=== PATIENT | female | born 1970 | race American Indian/Alaskan Native ===

== ENCOUNTER 2019-08-22 17:40 | Emergency (ER) | payer MEDICAID ==
--- NOTE | 2019-08-22 18:43 | Emergency Department Report ---
Blank Doc - Documentation Documentation: 49-year-old female that presents with URI symptoms and SOB. This initial assessment/diagnostic orders/clinical plan/treatment(s) is/are subject to change based on patient's health status, clinical progression and re- assessment by fellow clinical providers in the ED. Further treatment and workup at subsequent clinical providers discretion. Patient/guardians urged not to elope from the ED as their condition may be serious if not clinically assessed and managed. Initial orders include: 1- Patient sent to [facility] for further evaluation and treatment 2- CXR
--- NOTE | 2019-08-22 19:48 | XRay Report ---
CHEST 2 VIEWS INDICATION: cough. COMPARISON: None. FINDINGS: Support devices: None. Heart: Within normal limits. Lungs/Pleura: No acute air space or interstitial disease. No significant pleural effusion. IMPRESSION: No acute findings. Signer Name: Alexy Ospina MD Signed: 08/22/2019 7:44 PM Workstation Name: [id number]
[2019-08-22] MEDS ORDERED: methylPREDNISolone Sod Succinate 125 MG/2 ML INJ IM ONE (21:40)
[2019-08-22] MEDS ORDERED: IPRATROPIUM/ALBUTEROL SULFATE 3 ML AMPUL.NEB IH ONE (21:40)
[2019-08-22] MEDS ORDERED: IBUPROFEN 600 MG TAB PO ONE (21:40)
--- NOTE | 2019-08-22 22:50 | Emergency Department Report ---
- General Chief Complaint: Upper Respiratory Infection Stated Complaint: COLD LIKE SX + WHEEZING Time Seen by Provider: 08/22/19 18:42 Source: patient Mode of arrival: Ambulatory Limitations: No Limitations - History of Present Illness Initial Comments: Patient is a 49-year-old female with a history of asthma, hypertension, COPD and TIA who presents to the ED with complaint of acute onset persistent severe nasal and sinus congestion, frontal sinus pressure and headache, sore throat, subjective fever and chills, diffuse body aches and pains, dry cough with wheezing and shortness of breath and pleuritic chest when for the last 3 days. Patient denies dizziness, chest pain, dizziness, abdominal pain, nausea, vomiting, diarrhea, dysuria, change in vision or syncope and palpitations. Patient states that she has been using albuterol inhaler at home with no relief, and that she has also been using [id number] medication with no relief. Patient states that she used to have nebulizer equipment at home that lasted when she relocated to [place] from [place] over 6 months ago. MD Complaint: fever, cough, sore throat, rhinorrhea, nasal congestion, sinus pain -: Sudden, days(s) (3) Severity: severe Severity scale (0 -10): 7 Quality: aching Consistency: constant Improves With: nothing Worsens With: nothing Associated Symptoms: denies other symptoms, fever, chills, myalgias, headache, rhinorrhea, nasal congestion, sore throat, cough. denies: diaphoresis, stiff neck, chest pain, shortness of breath, abdominal pain, nausea, vomiting, diarrhea, dysuria, rash, confusion, right sweats, weight loss, epistaxis Treatments Prior to Arrival: "cold medicine" - Related Data Previous Rx's Medication Instructions Recorded Last Taken Type Aspirin [Aspirin BABY CHEW TAB] 81 mg PO QDAY tab.chew 06/12/15 1 Day Ago Rx ~12/16/17 Pantoprazole [Protonix TAB] 40 mg PO QDAY #30 tablet 06/12/15 1 Day Ago Rx ~12/16/17 Cetirizine HCl [Zyrtec 10mg tab] 10 mg PO DAILY #30 tablet 08/22/19 Unknown Rx Ibuprofen [Motrin] 800 mg PO Q8HR PRN #24 tablet 08/22/19 Unknown Rx Prednisone [predniSONE 10 mg 10 mg PO .TAPER #21 tab.ds.pk 08/22/19 Unknown Rx (6-Day Pack, 21 Tabs)] Promethazine/Phenyleph/Codeine 5 ml PO Q6H PRN #120 ml 08/22/19 Unknown Rx [Promethazine Vc-Codeine Syrup] levoFLOXacin [Levaquin TAB] 500 mg PO QDAY #10 tablet 08/22/19 Unknown Rx Allergies Allergy/AdvReac Type Severity Reaction Status Date / Time Penicillins Allergy Severe Shortness Verified 09/24/14 11:13 of Breath calcium carbonate Allergy Hives Verified 09/24/14 11:13 [From Pepcid Complete] famotidine Allergy Hives Verified 09/24/14 11:13 [From Pepcid Complete] magnesium Allergy Hives Verified 09/24/14 11:13 [From Pepcid Complete] procaine HCl [From Novocain] Allergy Unknown Verified 09/24/14 11:13 ED Review of Systems ROS: Stated complaint: COLD LIKE SX + WHEEZING Other details as noted in HPI Constitutional: chills, fever, malaise Eyes: denies: eye pain, eye discharge, vision change ENT: throat pain, congestion. denies: ear pain Respiratory: cough, shortness of breath, wheezing Cardiovascular: denies: chest pain, palpitations Endocrine: no symptoms reported Gastrointestinal: denies: abdominal pain, nausea, diarrhea Genitourinary: denies: urgency, dysuria, discharge Musculoskeletal: denies: back pain, joint swelling, arthralgia Skin: denies: rash, lesions Neurological: headache. 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 heart cath x 3. tonsillectomy. c- section - Social History Smoking Status: Never Smoker Substance Use Type: None - Medications Home Medications: Home Medications Medication Instructions Recorded Confirmed Last Taken Type Aspirin [Aspirin BABY CHEW TAB] 81 mg PO QDAY tab.chew 06/12/15 12/17/17 1 Day Ago Rx ~12/16/17 Pantoprazole [Protonix TAB] 40 mg PO QDAY #30 tablet 06/12/15 12/17/17 1 Day Ago Rx ~12/16/17 Cetirizine HCl [Zyrtec 10mg tab] 10 mg PO DAILY #30 tablet 08/22/19 Unknown Rx Ibuprofen [Motrin] 800 mg PO Q8HR PRN #24 tablet 08/22/19 Unknown Rx Prednisone [predniSONE 10 mg 10 mg PO .TAPER #21 tab.ds.pk 08/22/19 Unknown Rx (6-Day Pack, 21 Tabs)] Promethazine/Phenyleph/Codeine 5 ml PO Q6H PRN #120 ml 08/22/19 Unknown Rx [Promethazine Vc-Codeine Syrup] levoFLOXacin [Levaquin TAB] 500 mg PO QDAY #10 tablet 08/22/19 Unknown Rx ED Physical Exam - General Limitations: No Limitations General appearance: alert, in no apparent distress - Head Head exam: Present: atraumatic, normocephalic, normal inspection - Eye Eye exam: Present: normal appearance, PERRL, EOMI Pupils: Present: normal accommodation - ENT ENT exam: Present: normal orophraynx, mucous membranes moist, other (grossly congested nasal passages with palpable frontal sinus tenderness) - Neck Neck exam: Present: normal inspection, full ROM. Absent: tenderness, lymphadenopathy - Respiratory Respiratory exam: Present: wheezes (mildly diffuse coarse wheezes throughout), chest wall tenderness. Absent: respiratory distress, rales, rhonchi, accessory muscle use, decreased breath sounds - Cardiovascular Cardiovascular Exam: Present: normal rhythm, tachycardia, normal heart sounds. Absent: systolic murmur, diastolic murmur, rubs, gallop - GI/Abdominal GI/Abdominal exam: Present: soft, normal bowel sounds. Absent: tenderness, hyperactive bowel sounds, hypoactive bowel sounds, organomegaly - Extremities Exam Extremities exam: Present: normal inspection, full ROM, normal capillary refill - Back Exam Back exam: Present: normal inspection, full ROM. Absent: muscle spasm, paraspinal tenderness - Neurological Exam Neurological exam: Present: alert, oriented X3, CN II-XII intact, normal gait, reflexes normal - Psychiatric Psychiatric exam: Present: normal affect, normal mood - Skin Skin exam: Present: warm, dry, intact, normal color. Absent: rash ED Course Vital Signs 08/22/19 18:42 Temperature 99.1 F Pulse Rate 108 H Respiratory 18 Rate Blood Pressure 146/95 O2 Sat by Pulse 100 Oximetry ED Medical Decision Making - Radiology Data Radiology results: report reviewed, image reviewed Chest x-ray shows no acute cardiopulmonary abnormalities or pneumonitis. - Medical Decision Making This is a 49-year-old female with a history of asthma and COPD who presented to the ED with nasal and sinus congestion, frontal sinus pressure, shortness of breath, dry cough and wheezing for the last 3 days. In the ED, patient is alert and oriented 3 in destruction and distress. Patient is however tachycardic in triage. Patient was treated in the ED with DuoNeb, Solu-Medrol and also tearful pain. On reevaluation, patient's wheezing resolved and patient felt better. Tachycardia also resolved when the vital signs were rechecked. Patient was discharged home on medications and was advised to follow-up with her primary care physician in 5-7 days for reevaluation or return to the ED immediately if symptoms get worse. - Differential Diagnosis asthma; bronchitis, pneumonia, sinusitis; URI; Flu Critical care attestation.: If time is entered above; I have spent that time in minutes in the direct care of this critically ill patient, excluding procedure time. ED Disposition Clinical Impression: Acute upper respiratory infection, Acute asthmatic bronchitis Acute frontal sinusitis, unspecified Qualifiers: Recurrence: non-recurrent Qualified Code(s): J01.10 - Acute frontal sinusitis, unspecified Acute pharyngitis Qualifiers: Pharyngitis/tonsillitis etiology: other specified organisms Qualified Code(s): J02.8 - Acute pharyngitis due to other specified organisms Disposition: DC-01 TO HOME OR SELFCARE Is pt being admited?: No Does the pt Need Aspirin: No Condition: Stable Instructions: Acute Bronchitis (ED), Upper Respiratory Infection (ED), Reactive Airways Disease (ED), Acute Bacterial Rhinosinusitis (ED) Additional Instructions: Take medication with food, drink plenty of fluids and follow-up with your primary care physician in 5-7 days for reevaluation. Return to the ED imme diately if symptoms get worse. Prescriptions: levoFLOXacin [Levaquin TAB] 500 mg PO QDAY #10 tablet Ibuprofen [Motrin] 800 mg PO Q8HR PRN #24 tablet PRN Reason: Pain , Severe (7-10) Prednisone [predniSONE 10 mg (6-Day Pack, 21 Tabs)] 10 mg PO .TAPER #21 tab.ds.pk Promethazine/Phenyleph/Codeine [Promethazine Vc-Codeine Syrup] 5 ml PO Q6H PRN #120 ml PRN Reason: Cough Cetirizine HCl [Zyrtec 10mg tab] 10 mg PO DAILY #30 tablet Referrals: TUNG GRAJEDA MD [Staff Physician] - 7-10 days Forms: Work/School Release Form(ED) Time of Disposition: 22:57 Print Language: UKRAINIAN
[2019-08-22 22:54] VITALS: BP 104/70
== END 2019-08-22 23:13 | disposition home or self-care (01) ==
LOC: ED 17:40
DX: J01.10 Acute frontal sinusitis, unspecified (principal); J02.8 Acute pharyngitis due to other specified organisms; J06.9 Acute upper respiratory infection, unspecified; J45.998 Other asthma; K21.9 Gastro-esophageal reflux disease without esophagitis; G43.909 Migraine, unspecified, not intractable, without status migrainosus; F20.9 Schizophrenia, unspecified; F31.9 Bipolar disorder, unspecified; I25.2 Old myocardial infarction; Z86.73 Personal history of transient ischemic attack (TIA), and cerebral infarction without residual deficits; Z90.710 Acquired absence of both cervix and uterus; Z98.890 Other specified postprocedural states; Z95.5 Presence of coronary angioplasty implant and graft; Z90.49 Acquired absence of other specified parts of digestive tract; Z79.899 Other long term (current) drug therapy; Z88.0 Allergy status to penicillin; Z88.8 Allergy status to other drugs, medicaments and biological substances
CPT/HCPCS: 71046; 96372; 99283; J2930

== ENCOUNTER 2020-02-16 00:43 | Emergency (ER) | payer MEDICAID ==
[2020-02-16] MEDS ORDERED: HALOPERIDOL LACTATE 5 MG/1 ML INJ IM PRN (01:30)
[2020-02-16] MEDS ORDERED: LORazepam 2 MG/ML VIAL IM PRN (01:30)
--- NOTE | 2020-02-16 01:31 | Event Note ---
Date: 02/16/20 49-year-old female with known history of schizoaffective disorder, reportedly presenting with suicidality, and distress. Patient walking with a steady gait. Check basic laboratory studies, place patient on ER hold, psychiatric consultation, reassess.
[2020-02-16 01:42] LABS: Basophils % (Auto) 0.5 % (0.0-1.8); Eosinophils % (Auto) 0.6 % (0.0-4.3); Hematocrit 39.1 % (30.3-42.9); Lymphocytes # (Auto) 2.8 K/mm3 (1.2-5.4); Lymphocytes % (Auto) 37.2 % (13.4-35.0); Mean Corpuscular HGB Conc 33 % (30-34); Mean Corpuscular Volume 86 fl (79-97); Monocytes # (Auto) 0.5 K/mm3 (0.0-0.8); Monocytes % (Auto) 7.2 % (0.0-7.3); Platelet Count 286 K/mm3 (140-440); Red Blood Count 4.56 M/mm3 (3.65-5.03)
[2020-02-16 01:48] LABS: Bacteria,Urine 1+ /HPF (Negative); Mucus,Urine 3+ /HPF
[2020-02-16 01:49] LABS: Bilirubin,Urine NEG (Negative); Blood,Urine MOD (Negative); Color,Urine Yellow (Yellow)
[2020-02-16 02:06] LABS: BUN/Creatinine Ratio 14; Blood Urea Nitrogen 13 mg/dL (7-17); Calcium 10.1 mg/dL (8.4-10.2); Hemolysis Index 9
[2020-02-16 02:30] LABS: Amphetamine Screen,Urine PRESUMPTIVE NEGATIVE; Benzodiazepines Screen,Urine PRESUMPTIVE NEGATIVE; Cannabinoid Screen,Urine PRESUMPTIVE NEGATIVE; Cocaine Screen,Urine PRESUMPTIVE NEGATIVE; Methadone Screen,Urine PRESUMPTIVE NEGATIVE; Opiate Screen,Urine PRESUMPTIVE NEGATIVE
[2020-02-16] MEDS ORDERED: IBUPROFEN 800 MG TAB PO PRN (03:05)
[2020-02-16] MEDS ORDERED: ALPRAZolam 1 MG TAB PO ONE (03:14)
--- NOTE | 2020-02-16 03:15 | Emergency Department Report ---
<MARAH MC - Last Filed: 02/16/20 04:49> ED General Adult HPI - General Chief complaint: Psych Stated complaint: SUICIDAL IDEATION PUI?: No Time Seen by Provider: 02/16/20 03:04 Source: patient, EMS ( EMS documentation not available at time of chart dictation ), RN notes reviewed, old records reviewed Mode of arrival: Ambulatory Limitations: No Limitations - History of Present Illness Initial comments: This is a 49-year-old female, distant history of hysterectomy, history of bipolar, schizophrenia, question cervical radiculopathy, negative cardiac catheterization in the past, presenting to the ER with audio hallucinations, and suicidality. The patient is very distressed about the current social and political climate in this country. She denies physical pain at this time. She states that she does not want to hurt herself, but she is worried that the voices will push her over the edge. She indicates she does not have access to guns or firearms, and she has not tried to overdose on anything. Her symptoms are improved with verbal de-escalation techniques, calming techniques and Xanax. At the moment, she appears to be pleasant and cooperative, and is asking for warm blanket -: Gradual Consistency: constant Improves with: other Worsens with: other Associated Symptoms: denies other symptoms - Related Data Previous Rx's Medication Instructions Recorded Last Taken Type Aspirin [Aspirin BABY CHEW TAB] 81 mg PO QDAY tab.chew 06/12/15 1 Day Ago Rx ~12/16/17 Pantoprazole [Protonix TAB] 40 mg PO QDAY #30 tablet 06/12/15 1 Day Ago Rx ~12/16/17 Cetirizine HCl [Zyrtec 10mg tab] 10 mg PO DAILY #30 tablet 08/22/19 Unknown Rx Ibuprofen [Motrin] 800 mg PO Q8HR PRN #24 tablet 08/22/19 Unknown Rx Prednisone [predniSONE 10 mg 10 mg PO .TAPER #21 tab.ds.pk 08/22/19 Unknown Rx (6-Day Pack, 21 Tabs)] Promethazine/Phenyleph/Codeine 5 ml PO Q6H PRN #120 ml 08/22/19 Unknown Rx [Promethazine Vc-Codeine Syrup] levoFLOXacin [Levaquin TAB] 500 mg PO QDAY #10 tablet 08/22/19 Unknown Rx Allergies Allergy/AdvReac Type Severity Reaction Status Date / Time Penicillins Allergy Severe Shortness Verified 02/16/20 01:07 of Breath calcium carbonate Allergy Hives Verified 02/16/20 01:07 [From Pepcid Complete] famotidine Allergy Hives Verified 02/16/20 01:07 [From Pepcid Complete] magnesium Allergy Hives Verified 02/16/20 01:07 [From Pepcid Complete] procaine HCl [From Novocain] Allergy Unknown Verified 02/16/20 01:07 ED Review of Systems Comment: All other systems reviewed and negative Psychiatric: anxiety, depression, auditory hallucinations, suicidal thoughts. 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 heart cath x 3. tonsillectomy. c- section - Social History Smoking Status: Never Smoker Substance Use Type: None - Medications Home Medications: Home Medications Medication Instructions Recorded Confirmed Last Taken Type Aspirin [Aspirin BABY CHEW TAB] 81 mg PO QDAY tab.chew 06/12/15 12/17/17 1 Day Ago Rx ~12/16/17 Pantoprazole [Protonix TAB] 40 mg PO QDAY #30 tablet 06/12/15 12/17/17 1 Day Ago Rx ~12/16/17 Cetirizine HCl [Zyrtec 10mg tab] 10 mg PO DAILY #30 tablet 08/22/19 Unknown Rx Ibuprofen [Motrin] 800 mg PO Q8HR PRN #24 tablet 08/22/19 Unknown Rx Prednisone [predniSONE 10 mg 10 mg PO .TAPER #21 tab.ds.pk 08/22/19 Unknown Rx (6-Day Pack, 21 Tabs)] Promethazine/Phenyleph/Codeine 5 ml PO Q6H PRN #120 ml 08/22/19 Unknown Rx [Promethazine Vc-Codeine Syrup] levoFLOXacin [Levaquin TAB] 500 mg PO QDAY #10 tablet 08/22/19 Unknown Rx ED Physical Exam - General Limitations: No Limitations General appearance: alert, anxious, in distress, obese - Head Head exam: Present: atraumatic, normocephalic - Eye Eye exam: Present: normal appearance, EOMI. Absent: nystagmus - ENT ENT exam: Present: normal exam, normal orophraynx, mucous membranes moist, normal external ear exam - Neck Neck exam: Present: normal inspection, full ROM. Absent: tenderness, menin gismus - Respiratory Respiratory exam: Present: normal lung sounds bilaterally. Absent: respiratory distress - Cardiovascular Cardiovascular Exam: Present: regular rate, normal rhythm, normal heart sounds. Absent: bradycardia, tachycardia, irregular rhythm, systolic murmur, diastolic murmur, rubs, gallop - GI/Abdominal GI/Abdominal exam: Present: soft, normal bowel sounds. Absent: distended, tenderness, guarding, rebound, pulsatile mass - Extremities Exam Extremities exam: Present: normal inspection, full ROM, other (2+ pulses noted in the bilateral upper and lower extremities. There is no palpable cord. negative Homans sign. Muscular compartments are soft. The pelvis is stable.). Absent: pedal edema, calf tenderness - Back Exam Back exam: Present: normal inspection, full ROM. Absent: tenderness, CVA tenderness (R), CVA tenderness (L), paraspinal tenderness, vertebral tenderness - Neurological Exam Neurological exam: Present: alert, oriented X3, normal gait, other (No facial droop. Tongue midline. Extraocular movements intact bilaterally. Facial sensation intact to light touch in V1, V2, V3 distribution bilaterally. 5 and a 5 strength in 4 extremities. Sensation intact to light touch in 4 extremities.). Absent: motor sensory deficit - Psychiatric Psychiatric exam: Present: anxious. Absent: homicidal ideation, suicidal ideation - Skin Skin exam: Present: warm, dry, intact, normal color. Absent: rash ED Medical Decision Making - Lab Data Result diagrams: 02/16/20 01:27 02/16/20 01:27 Vital Signs 02/16/20 01:07 Temperature 98.8 F Pulse Rate 93 H Respiratory 18 Rate Blood Pressure 155/98 O2 Sat by Pulse 98 Oximetry Lab Results 02/16/20 02/16/20 02/16/20 Range/Units 01:27 01:27 01:27 WBC (4.5-11.0) K/mm3 RBC (3.65-5.03) M/mm3 Hgb (10.1-14.3) gm/dl Hct (30.3-42.9) % MCV (79-97) fl MCH (28-32) pg MCHC (30-34) % RDW (13.2-15.2) % Plt Count (140-440) K/mm3 Lymph % (Auto) (13.4-35.0) % [place] % (Auto) (0.0-7.3) % Eos % (Auto) (0.0-4.3) % Baso % (Auto) (0.0-1.8) % Lymph # (1.2-5.4) K/mm3 [place] # (0.0-0.8) K/mm3 Eos # (0.0-0.4) K/mm3 Baso # (0.0-0.1) K/mm3 Seg Neutrophils % (40.0-70.0) % Seg Neutrophils # (1.8-7.7) K/mm3 Sodium 143 (137-145) mmol/L Potassium 3.6 (3.6-5.0) mmol/L Chloride 103.9 (98-107) mmol/L Carbon Dioxide 23 (22-30) mmol/L Anion Gap 20 mmol/L BUN 13 (7-17) mg/dL Creatinine 0.9 (0.7-1.2) mg/dL Estimated GFR > 60 ml/min BUN/Creatinine Ratio 14 % Glucose 120 H (65-100) mg/dL Calcium 10.1 (8.4-10.2) mg/dL Magnesium (1.7-2.3) mg/dL Total Creatine Kinase (30-135) units/L Urine Color (Yellow) Urine Turbidity (Clear) Urine pH (5.0-7.0) Ur Specific [place] (1.003-1.030) Urine Protein (Negative) mg/dL Urine Glucose (UA) (Negative) mg/dL Urine Ketones (Negative) mg/dL Urine Blood (Negative) Urine Nitrite (Negative) Ur Reducing Substances Urine Bilirubin (Negative) Urine Ictotest Urine Urobilinogen (<2.0) mg/dL Ur Leukocyte Esterase (Negative) Urine WBC (Auto) (0.0-6.0) /HPF Urine RBC (Auto) (0.0-6.0) /HPF U Epithel Cells (Auto) (0-13.0) /HPF Urine Bacteria (Auto) (Negative) /HPF Urine Mucus /HPF Salicylates (2.8-20.0) mg/dL Urine Opiates Screen Urine Methadone Screen Acetaminophen < 5.0 L (10.0-30.0) ug/mL Ur Barbiturates Screen Valproic Acid (50-100) ug/mL Ur Phencyclidine Scrn Ur Amphetamines Screen U Benzodiazepines Scrn Urine Cocaine Screen U Marijuana (THC) Screen Drugs of Abuse Note Plasma/Serum Alcohol < 0.01 (0-0.07) % 02/16/20 02/16/20 02/16/20 Range/Units 01:27 01:30 01:33 WBC 7.5 (4.5-11.0) K/mm3 RBC 4.56 (3.65-5.03) M/mm3 Hgb 13.0 (10.1-14.3) gm/dl Hct 39.1 (30.3-42.9) % MCV 86 (79-97) fl MCH 28 (28-32) pg MCHC 33 (30-34) % RDW 14.0 (13.2-15.2) % Plt Count 286 (140-440) K/mm3 Lymph % (Auto) 37.2 H (13.4-35.0) % [place] % (Auto) 7.2 (0.0-7.3) % Eos % (Auto) 0.6 (0.0-4.3) % Baso % (Auto) 0.5 (0.0-1.8) % Lymph # 2.8 (1.2-5.4) K/mm3 [place] # 0.5 (0.0-0.8) K/mm3 Eos # 0.0 (0.0-0.4) K/mm3 Baso # 0.0 (0.0-0.1) K/mm3 Seg Neutrophils % 54.5 (40.0-70.0) % Seg Neutrophils # 4.1 (1.8-7.7) K/mm3 Sodium (137-145) mmol/L Potassium (3.6-5.0) mmol/L Chloride (98-107) mmol/L Carbon Dioxide (22-30) mmol/L Anion Gap mmol/L BUN (7-17) mg/dL Creatinine (0.7-1.2) mg/dL Estimated GFR ml/min BUN/Creatinine Ratio % Glucose (65-100) mg/dL Calcium (8.4-10.2) mg/dL Magnesium 2.10 (1.7-2.3) mg/dL Total Creatine Kinase 63 (30-135) units/L Urine Color (Yellow) Urine Turbidity (Clear) Urine pH (5.0-7.0) Ur Specific [place] (1.003-1.030) Urine Protein (Negative) mg/dL Urine Glucose (UA) (Negative) mg/dL Urine Ketones (Negative) mg/dL Urine Blood (Negative) Urine Nitrite (Negative) Ur Reducing Substances Urine Bilirubin (Negative) Urine Ictotest Urine Urobilinogen (<2.0) mg/dL Ur Leukocyte Esterase (Negative) Urine WBC (Auto) (0.0-6.0) /HPF Urine RBC (Auto) (0.0-6.0) /HPF U Epithel Cells (Auto) (0-13.0) /HPF Urine Bacteria (Auto) (Negative) /HPF Urine Mucus /HPF Salicylates < 0.3 L (2.8-20.0) mg/dL Urine Opiates Screen Urine Methadone Screen Acetaminophen (10.0-30.0) ug/mL Ur Barbiturates Screen Valproic Acid < 2.8 L (50-100) ug/mL Ur Phencyclidine Scrn Ur Amphetamines Screen U Benzodiazepines Scrn Urine Cocaine Screen U Marijuana (THC) Screen Drugs of Abuse Note Plasma/Serum Alcohol (0-0.07) % 02/16/20 02/16/20 Range/Units 01:39 01:39 WBC (4.5-11.0) K/mm3 RBC (3.65-5.03) M/mm3 Hgb (10.1-14.3) gm/dl Hct (30.3-42.9) % MCV (79-97) fl MCH (28-32) pg MCHC (30-34) % RDW (13.2-15.2) % Plt Count (140-440) K/mm3 Lymph % (Auto) (13.4-35.0) % [place] % (Auto) (0.0-7.3) % Eos % (Auto) (0.0-4.3) % Baso % (Auto) (0.0-1.8) % Lymph # (1.2-5.4) K/mm3 [place] # (0.0-0.8) K/mm3 Eos # (0.0-0.4) K/mm3 Baso # (0.0-0.1) K/mm3 Seg Neutrophils % (40.0-70.0) % Seg Neutrophils # (1.8-7.7) K/mm3 Sodium (137-145) mmol/L Potassium (3.6-5.0) mmol/L Chloride (98-107) mmol/L Carbon Dioxide (22-30) mmol/L Anion Gap mmol/L BUN (7-17) mg/dL Creatinine (0.7-1.2) mg/dL Estimated GFR ml/min BUN/Creatinine Ratio % Glucose (65-100) mg/dL Calcium (8.4-10.2) mg/dL Magnesium (1.7-2.3) mg/dL Total Creatine Kinase (30-135) units/L Urine Color Yellow (Yellow) Urine Turbidity Cloudy (Clear) Urine pH 5.0 (5.0-7.0) Ur Specific [place] 1.030 (1.003-1.030) Urine Protein 30 mg/dl (Negative) mg/dL Urine Glucose (UA) Neg (Negative) mg/dL Urine Ketones Neg (Negative) mg/dL Urine Blood Mod (Negative) Urine Nitrite Neg (Negative) Ur Reducing Substances Not Reportable Urine Bilirubin Neg (Negative) Urine Ictotest Not Reportable Urine Urobilinogen 2.0 (<2.0) mg/dL Ur Leukocyte Esterase Sm (Negative) Urine WBC (Auto) 8.0 H (0.0-6.0) /HPF Urine RBC (Auto) 15.0 (0.0-6.0) /HPF U Epithel Cells (Auto) 17.0 H (0-13.0) /HPF Urine Bacteria (Auto) 1+ (Negative) /HPF Urine Mucus 3+ /HPF Salicylates (2.8-20.0) mg/dL Urine Opiates Screen Presumptive negative Urine Methadone Screen Presumptive negative Acetaminophen (10.0-30.0) ug/mL Ur Barbiturates Screen Presumptive negative Valproic Acid (50-100) ug/mL Ur Phencyclidine Scrn Presumptive negative Ur Amphetamines Screen Presumptive negative U Benzodiazepines Scrn Presumptive negative Urine Cocaine Screen Presumptive negative U Marijuana (THC) Screen Presumptive negative Drugs of Abuse Note Disclamer Plasma/Serum Alcohol (0-0.07) % - Medical Decision Making Differential diagnosis, including but not limited to: Anxiety, psychosis, medical clearance for psychiatric placement Assessment and plan: 49-year-old female with known psychiatric history, presenting with hallucinations, suicidality, anxiety over current social political events. She is afebrile with reassuring vital signs. She was initially quite distressed, but now appears to be more calm. Her screening laboratory studies are unremarkable. At this point time, she presents as calm and cooperative. The patient is placed on hold, and a psychiatric consultation is requested. At the moment, the patient does not appear to have an immediate medical contraindication to psychiatric admission, evaluation, consultation and placement ED Disposition Clinical Impression: Suicidal ideations, Medical clearance for psychiatric admission Disposition: -01 TO HOME OR SELFCARE Is pt being admited?: No Does the pt Need Aspirin: No Condition: Good Instructions: Suicide Prevention for Adults (ED), Depression (ED), Medical Clearance for Psychiatric Care (ED) Additional Instructions: Please follow-up with a primary care physician as soon as you are able to do so. Please follow-up with the [facility] or any of the other outpatient referrals that you were given by the psychiatric team. Return to the emergency department with any worsening of your symptoms, thoughts of harming your self or others, or with any acute distress. Referrals: PRIMARY CAREMD [Primary Care Provider] - 3-5 Days [facility] [Outside] - 3-5 Days <LISA LONGO S - Last Filed: 02/16/20 18:13> ED Review of Systems ROS: Stated complaint: SUICIDAL IDEATION Other details as noted in HPI ED Course Vital Signs 02/16/20 02/16/20 02/16/20 01:07 04:00 07:31 Temperature 98.8 F 97.7 F Pulse Rate 93 H 78 Respiratory 18 18 20 Rate Blood Pressure 155/98 Blood Pressure 139/87 [Left] O2 Sat by Pulse 98 97 Oximetry 02/16/20 10:30 Temperature 97.6 F Pulse Rate 78 Respiratory 17 Rate Blood Pressure Blood Pressure 134/82 [Left] O2 Sat by Pulse 97 Oximetry ED Medical Decision Making - Lab Data Result diagrams: 02/16/20 01:27 02/16/20 01:27 - Medical Decision Making Patient has been accepted for admission to the [facility] psych unit. Her vital signs and labs have been reviewed and there does not appear to be any immediate medical concerns or emergency for which she is not able to be discharged to the [facility] psych unit. Critical Care Time: No Critical care attestation.: If time is entered above; I have spent that time in minutes in the direct care of this critically ill patient, excluding procedure time. ED Disposition Is pt being admited?: No
[2020-02-16] MEDS ORDERED: PANTOPRAZOLE 40 MG TAB PO SCH (10:00)
[2020-02-16] MEDS ORDERED: ASPIRIN 81 MG TAB CHEW PO SCH (10:00)
[2020-02-16] MEDS ORDERED: CETIRIZINE 10 MG TAB PO SCH (10:00)
[2020-02-16 15:45] VITALS: BP 134/82
== END 2020-02-16 18:18 | disposition home or self-care (01) ==
LOC: ED 00:43 → EEVIPCON 00:43 → ED 18:18
DX: R45.851 Suicidal ideations (principal); I25.2 Old myocardial infarction; F20.9 Schizophrenia, unspecified; G43.909 Migraine, unspecified, not intractable, without status migrainosus; J44.9 Chronic obstructive pulmonary disease, unspecified; K21.9 Gastro-esophageal reflux disease without esophagitis; Z88.0 Allergy status to penicillin; Z88.8 Allergy status to other drugs, medicaments and biological substances; Z90.710 Acquired absence of both cervix and uterus; Z86.73 Personal history of transient ischemic attack (TIA), and cerebral infarction without residual deficits; Z90.49 Acquired absence of other specified parts of digestive tract; Z98.890 Other specified postprocedural states; Z79.899 Other long term (current) drug therapy; Z00.8 Encounter for other general examination
CPT/HCPCS: 36415; 80048; 80164; 80307; 80320; 81001; 82550; 83735; 85025; G0480

== ENCOUNTER 2020-02-16 12:11 | Inpatient (IN) | payer MEDICAID ==
[2020-02-16] MEDS ORDERED: ACETAMINOPHEN 325 MG TAB PO PRN (12:33)
[2020-02-16] MEDS ORDERED: HALOPERIDOL LACTATE 5 MG/1 ML INJ IM PRN (12:33)
[2020-02-16] MEDS ORDERED: LORazepam 2 MG/ML VIAL IM PRN (12:33)
[2020-02-16] MEDS ORDERED: MELATONIN 5 MG TAB PO PRN (12:33)
[2020-02-16] MEDS: traZODone 50 MG TAB PO SCH (21:22)
[2020-02-16] MEDS: VALPROIC ACID 250 MG CAP PO SCH (21:22)
[2020-02-16] MEDS: QUEtiapine 25 MG TAB PO SCH (21:23)
[2020-02-17 06:26] LABS: Chol/HDL Ratio 2.07 %
[2020-02-17] MEDS: VALPROIC ACID 250 MG CAP PO SCH ×3 (09:23→21:25)
[2020-02-17] MEDS: QUEtiapine 25 MG TAB PO SCH ×2 (09:23→09:24)
[2020-02-17] MEDS: NICOTINE 7 MG/24 HR PATCH TD SCH (09:27)
--- NOTE | 2020-02-17 09:49 | History and Physical Report ---
GP History & Physical - History of Present Illness Date of admission: 02/16/20 Date of Examination: 02/17/20 Reason for Admission: Danger to self, Severe anxiety/depression Chief Complaint: depression, hallucinations, suicidal History of Present Illness: Billy Alberto is a 49y/o female patient who states she was brought to the hospital because, "I didn't know what was going on with me. I didn't feel right." The patient is a/o x 3. She makes good eye contact. She is calm and cooperative. The patient verbalizes being "depressed." She says "I have voices fighting in my head." She then says, "I don't get much sleep because the voices keep messing with me." The patient states, "everything makes me sad." She then says, "like listening to this song right now, it makes me feeling like I want to ." She denies SI/HI, but states, "I just want to . Not hurt myself, but I feel like I'm dying." There is music playing in the background. Mrs. Alberto says she had this same thing happen to her "about a month ago." She says she "didn't know what was going on with me just like now." The patient says she's "attempted suicide about 16 times." She says, "mostly from taking pills, but once from drinking bleach." She says she's been admitted for psychiatric problems, "over 1000 times." She denies any illicit drug use, alcohol or nicotine use. She also denies any outpatient treatments. She says, she "normally go to the hospital." The patient says she has past psych diagnoses of "bipolar, depression and schizophrenia." She could not remember medications she had tried. PAST PSYCHIATRIC HISTORY: Diagnoses: bipolar, depression, schizophrenia Suicide attempts or Self-harm behavior: "16" Prior psychiatric hospitalizations: "over 1000 times" Substance Abuse history: Denies Previous psychiatric medications tried: Could not recall Outpatient treatment: Denies PAST MEDICAL HISTORY: None reported Family Psychiatric History: None reported or documented SOCIAL HISTORY Marital Status: Living Arrangements: roommate Employment Status: Disabled Access to guns/weapons: Denies Education: 10th grade History of abuse: Denies Legal History: Denies ROS Constitutional: Negative for weight loss EMT: Negative for stridor Respiratory: Negative for cough or hemoptysis All other systems reviewed and are negative MENTAL STATUS EXAMINATION General Appearance: Dressed appropriately. Behavior: Calm and cooperative Mood: "Depressed" Affect: Congruent with stated mood Speech: Normal tone and pace Thought Process: Goal directed Suicidal Ideation: Yes, passive Homicidal Ideation: Denies Hallucinations: Auditory Delusions: None elicited Insight and Judgment: Limited Memory/Cognition: Limited Assessment and Plan Schizoaffective Disorder Treatment Plan Patient will be admitted for inpatient psychiatric evaluation, medication adjustment and close monitoring The patient's behavior, mood, sleep and appetite will be closely monitored. Patient will be enrolled in individual and group therapeutic sessions and encouraged to attend. Patient will be provided with a safe and structured environment. Patient's physical health needs will be addressed by the Hospitalist. Hospitalist Consulted Labs including CBC, CMP, Lipid profile and Hemoglobin A1C ordered Social Assessment will be completed and the Child Life Therapist will work with patient and family to ensure a suitable and safe disposition Medication adjustment will be made as clinically indicated Usual Wellness Alevism/Preservation: Increased Seroquel 100mg po BID Prozac 10mg po daily This is an acknowledgement statement that Billy Alberto is a 49y/o female patient who requires inpatient psychiatric admission for treatment which could reasonably be expected to improve the patient's condition for Schizoaffective Disorder, which includes the symptoms of depression, suicidal thoughts, and psychosis. Estimated period of time patient will need to remain in the hospital: [7] Plan for post-hospital care: [Outpatient ] Legal Status: Voluntary Reaction to Hospitalization: Accepting Medications and Allergies Allergies Allergy/AdvReac Type Severity Reaction Status Date / Time Penicillins Allergy Severe Shortness Verified 02/16/20 01:07 of Breath calcium carbonate Allergy Hives Verified 02/16/20 01:07 [From Pepcid Complete] famotidine Allergy Hives Verified 02/16/20 01:07 [From Pepcid Complete] magnesium Allergy Hives Verified 02/16/20 01:07 [From Pepcid Complete] procaine HCl [From Novocain] Allergy Unknown Verified 02/16/20 01:07 Home Medications Medication Instructions Recorded Confirmed Last Taken Type Aspirin [Aspirin BABY CHEW TAB] 81 mg PO QDAY tab.chew 06/12/15 12/17/17 1 Day Ago Rx ~12/16/17 Pantoprazole [Protonix TAB] 40 mg PO QDAY #30 tablet 06/12/15 12/17/17 1 Day Ago Rx ~12/16/17 Cetirizine HCl [Zyrtec 10mg tab] 10 mg PO DAILY #30 tablet 08/22/19 Unknown Rx Ibuprofen [Motrin] 800 mg PO Q8HR PRN #24 tablet 08/22/19 Unknown Rx Prednisone [predniSONE 10 mg 10 mg PO .TAPER #21 tab.ds.pk 08/22/19 Unknown Rx (6-Day Pack, 21 Tabs)] Promethazine/Phenyleph/Codeine 5 ml PO Q6H PRN #120 ml 08/22/19 Unknown Rx [Promethazine Vc-Codeine Syrup] levoFLOXacin [Levaquin TAB] 500 mg PO QDAY #10 tablet 08/22/19 Unknown Rx Active Meds: Active Medications Acetaminophen (Tylenol) 650 mg PO Q4H PRN PRN Reason: Pain, Mild (1-3) Haloperidol Lactate (Haldol) 5 mg IM ONCE PRN PRN Reason: Agitation Lorazepam (Ativan) 2 mg IM Q4HR PRN PRN Reason: Agitation Melatonin (Melatonin) 5 mg PO QHS PRN PRN Reason: Sleep Nicotine (Habitrol) 7 mg TD QDAY [facility] Last Admin: 02/17/20 09:27 Dose: Not Given Documented by: Quetiapine Fumarate (Seroquel) 50 mg PO BID [facility] Last Admin: 02/17/20 09:24 Dose: Not Given Documented by: Trazodone HCl (Desyrel) 50 mg PO QHS [facility] Last Admin: 02/16/20 21:22 Dose: 50 mg Documented by: Valproic Acid (Depakene) 500 mg PO BID [facility] Last Admin: 02/17/20 09:24 Dose: 500 mg Documented by: Results - Results Labs/Vitals: Laboratory Last Values POC Glucose 100 (70-105) 02/16/20 19:47 Hemoglobin A1c 5.3 % (4-6) 02/17/20 05:55 Triglycerides 81 mg/dL (2-149) 02/17/20 05:55 Cholesterol 135 mg/dL (50-199) 02/17/20 05:55 LDL Cholesterol Direct 64 mg/dL (50-130) 02/17/20 05:55 HDL Cholesterol 65 mg/dL (40-59) H 02/17/20 05:55 Cholesterol/HDL Ratio 2.07 % 02/17/20 05:55 TSH 1.790 mlU/mL (0.270-4.200) 02/17/20 05:55 Last Vital Signs Temp 98.4 F 02/17/20 07:54 Pulse 78 02/17/20 07:54 Resp 17 02/17/20 07:54 BP 149/89 02/17/20 07:54 Pulse Ox 98 02/17/20 07:54 Physical Examination - Constitutional Vitals: Vital Signs Temp Pulse Resp BP Pulse Ox 98.4 F 78 17 149/89 98 02/17/20 07:54 02/17/20 07:54 02/17/20 07:54 02/17/20 07:54 02/17/20 07:54 Temperature -Last 24 Hours Temperature 98.4 F Temperature 98.0 F Mental Status Exam - Vital signs Last Vital Signs Temp 98.4 F 02/17/20 07:54 Pulse 78 02/17/20 07:54 Resp 02/17/20 07:54 BP 149/89 02/17/20 07:54 Pulse Ox 98 02/17/20 07:54 Physician Certification - Certification Statement Physician Certification Statement: This is an acknowledgement statement that BILLY ALBERTO is a 49 year old F who requires inpatient psychiatric admission for treatment which could reasonably be expected to improve the patient's condition for Estimated period of time patient will need to remain in the hospital: [ ] Plan for post-hospital care: [ ]
[2020-02-17] MEDS: FLUoxetine 10 MG TAB PO SCH (10:41)
[2020-02-17] MEDS: QUEtiapine 100 MG TAB PO SCH ×2 (10:41→21:31)
[2020-02-17] MEDS: traZODone 50 MG TAB PO SCH (21:24)
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
[2020-02-18] MEDS: FLUoxetine 10 MG TAB PO SCH (11:23)
[2020-02-18] MEDS: risperiDONE 0.25 MG TAB PO SCH ×3 (11:24→21:55)
[2020-02-18] MEDS: NICOTINE 7 MG/24 HR PATCH TD SCH (11:26)
[2020-02-18] MEDS: VALPROIC ACID 250 MG CAP PO SCH ×3 (14:09→21:50)
[2020-02-18] MEDS: traZODone 50 MG TAB PO SCH ×2 (21:49→21:55)
--- NOTE | 2020-02-19 07:59 | Progress Note ---
Subjective Date of service: 02/19/20 Principal diagnosis: Schizoaffective Disorder Subjective Comment: The patient's medical record was reviewed and the patient's progress discussed with the nursing staff. The nurse note states the patient is alert and oriented x4, easily irritable, refused bedtime medication During my interview with the patient, she is found in the dayroom with her head down on the table. She arouses easily. The patient is irritable. She is paranoid. She is uncooperative. She describes her mood as "alright." When asking the patient how did her night go, she states, "yall keep aggrevating me. Yall taking me for a joke and I'm tired of it." When asking the patient to elaborate on why she felt this way, she replies, "I's not funny at all." She then says, "bye. Bye. I'm done." The patient then puts her head back down and refuses to continue the interview. Reason for continued inpatient treatment: The patient is paranoid, and irritable. ROS The patient did not answer MENTAL STATUS EXAMINATION General Appearance: Dressed appropriately. Behavior: Withdrawn, Irritable. Uncooperative. Mood: "alright" Affect: Congruent with stated mood, Restricted Speech: Normal tone and pace Thought Process: Goal directed Suicidal Ideation: Could not obtain Homicidal Ideation: Could not obtain Hallucinations: Could not obtain Delusions: Paranoid Insight and Judgment: Limited Memory/Cognition: Limited Assessment and Plan Schizoaffective Disorder Treatment Plan Patient will be admitted for inpatient psychiatric evaluation, medication adjustment and close monitoring The patient's behavior, mood, sleep and appetite will be closely monitored. Patient will be enrolled in individual and group therapeutic sessions and encouraged to attend. Patient will be provided with a safe and structured environment. Patient's physical health needs will be addressed by the Hospitalist. Hospitalist Consulted Labs including CBC, CMP, Lipid profile and Hemoglobin A1C ordered Valproic Acid level 02/22/20 Social Assessment will be completed and the Plug Machine Operator will work with patient and family to ensure a suitable and safe disposition Medication adjustment will be made as clinically indicated Usual Wellness Jainism/Preservation: Increased Risperidone 1mg po BID This is an acknowledgement statement that April Alberto is a 49y/o female patient who requires inpatient psychiatric admission for treatment which could reasonably be expected to improve the patient's condition for Schizoaffective Disorder, which includes the symptoms of depression, suicidal thoughts, and psychosis. Estimated period of time patient will need to remain in the hospital: [5] Plan for post-hospital care: [Outpatient ] Medications and Allergies Allergies Allergy/AdvReac Type Severity Reaction Status Date / Time Penicillins Allergy Severe Shortness Verified 02/16/20 01:07 of Breath calcium carbonate Allergy Hives Verified 02/16/20 01:07 [From Pepcid Complete] famotidine Allergy Hives Verified 02/16/20 01:07 [From Pepcid Complete] magnesium Allergy Hives Verified 02/16/20 01:07 [From Pepcid Complete] procaine HCl [From Novocain] Allergy Unknown Verified 02/16/20 01:07 Home Medications Medication Instructions Recorded Confirmed Last Taken Type Aspirin [Aspirin BABY CHEW TAB] 81 mg PO QDAY tab.chew 06/12/15 02/17/20 1 Day Ago Rx ~12/16/17 Pantoprazole [Protonix TAB] 40 mg PO QDAY #30 tablet 06/12/15 02/17/20 1 Day Ago Rx ~12/16/17 Cetirizine HCl [Zyrtec 10mg tab] 10 mg PO DAILY #30 tablet 08/22/19 02/17/20 Unknown Rx Ibuprofen [Motrin] 800 mg PO Q8HR PRN #24 tablet 08/22/19 02/17/20 Unknown Rx Prednisone [predniSONE 10 mg 10 mg PO .TAPER #21 tab.ds.pk 08/22/19 02/17/20 Unknown Rx (6-Day Pack, 21 Tabs)] Promethazine/Phenyleph/Codeine 5 ml PO Q6H PRN #120 ml 08/22/19 02/17/20 Unknown Rx [Promethazine Vc-Codeine Syrup] levoFLOXacin [Levaquin TAB] 500 mg PO QDAY #10 tablet 08/22/19 02/17/20 Unknown Rx Active Meds: Active Medications Acetaminophen (Tylenol) 650 mg PO Q4H PRN PRN Reason: Pain, Mild (1-3) Fluoxetine HCl (Prozac) 10 mg PO QDAY [facility] Last Admin: 02/18/20 11:23 Dose: 10 mg Documented by: Haloperidol Lactate (Haldol) 5 mg IM ONCE PRN PRN Reason: Agitation Lorazepam (Ativan) 2 mg IM Q4HR PRN PRN Reason: Agitation Melatonin (Melatonin) 5 mg PO QHS PRN PRN Reason: Sleep Nicotine (Habitrol) 7 mg TD QDAY [facility] Last Admin: 02/18/20 11:26 Dose: Not Given Documented by: Risperidone (Risperdal) 0.5 mg PO BID [facility] Last Admin: 02/18/20 21:55 Dose: Not Given Documented by: Trazodone HCl (Desyrel) 50 mg PO QHS [facility] Last Admin: 02/18/20 21:55 Dose: Not Given Documented by: Valproic Acid (Depakene) 500 mg PO TID [facility] Last Admin: 02/18/20 20:54 Dose: Not Given Documented by: Results - Results Labs/Vitals: Laboratory Last Values POC Glucose 100 (70-105) 02/16/20 19:47 Hemoglobin A1c 5.3 % (4-6) 02/17/20 05:55 Triglycerides 81 mg/dL (2-149) 02/17/20 05:55 Cholesterol 135 mg/dL (50-199) 02/17/20 05:55 LDL Cholesterol Direct 64 mg/dL (50-130) 02/17/20 05:55 HDL Cholesterol 65 mg/dL (40-59) H 02/17/20 05:55 Cholesterol/HDL Ratio 2.07 % 02/17/20 05:55 TSH 1.790 mlU/mL (0.270-4.200) 02/17/20 05:55 Last Vital Signs Temp 98.8 F 02/18/20 19:51 Pulse 78 02/18/20 19:51 Resp 18 02/18/20 19:51 BP 129/74 02/18/20 19:51 Pulse Ox 100 02/18/20 19:51
[2020-02-19] MEDS ORDERED: risperiDONE 1 MG TAB PO SCH (10:00)
[2020-02-19] MEDS: FLUoxetine 10 MG TAB PO SCH (10:07)
[2020-02-19] MEDS: NICOTINE 7 MG/24 HR PATCH TD SCH (10:08)
[2020-02-19] MEDS: VALPROIC ACID 250 MG CAP PO SCH ×3 (10:10→21:25)
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
[2020-02-19] MEDS: ARIPiprazole 5 MG TAB PO SCH (15:38)
[2020-02-19] MEDS: VENLAFAXINE 25 MG TAB PO SCH (15:38)
[2020-02-19] MEDS: traZODone 50 MG TAB PO SCH (21:25)
[2020-02-20 09:16] VITALS: BP 124/74
[2020-02-20] MEDS: VENLAFAXINE 25 MG TAB PO SCH (09:30)
[2020-02-20] MEDS: ARIPiprazole 5 MG TAB PO SCH (09:31)
[2020-02-20] MEDS: VALPROIC ACID 250 MG CAP PO SCH (09:31)
--- NOTE | 2020-02-20 10:02 | Discharge Summary ---
Providers - Providers Date of Admission: 02/16/20 18:47 Date of discharge: 02/20/20 Attending physician: SAUL PHILLIPS MD 02/16/20 12:31 Consult to Physician [CONS] Routine Comment: Consulting Provider: BIBIANA WATSON Physician Instructions: Reason For Exam: medical management Primary care physician: MEDICAL INSURANCE BILLER Hospitalization Reason for admission: hallucinations, depression Admitting Diagnosis: F25.1 - SCHIZOAFFECTIVE DISORDER, DEPRESSIVE TYPE Condition: Stable Hospital course: The patient was provided inpatient psychiatric treatment with safe and supportive care, medication adjustment, adverse effect monitoring, medical evaluations, medical treatments, assessment and psycho-education. The patient's mood, cognition, behavior, moral support are improved and stabilized. St the time of discharge, the patient had no endangering behavior and no debilitating adverse effects. The patient agreed on potential consequences of no treatment and gave informed consent. Disposition: - TO HOME OR SELFCARE Time spent for discharge: 37 Allergies/Adverse Reactions: Allergies Penicillins Allergy (Severe, Verified 02/16/20 01:07) Shortness of Breath calcium carbonate [From Pepcid Complete] Allergy (Verified 02/16/20 01:07) Hives famotidine [From Pepcid Complete] Allergy (Verified 02/16/20 01:07) Hives magnesium [From Pepcid Complete] Allergy (Verified 02/16/20 01:07) Hives procaine HCl [From Novocain] Allergy (Verified 02/16/20 01:07) Unknown Vital Signs: Last Vital Signs Temp 98.5 F 02/20/20 08:47 Pulse 83 02/20/20 08:47 Resp 18 02/20/20 08:47 BP 124/74 02/20/20 08:47 Pulse Ox 98 02/20/20 08:47 Last Lab: Laboratory Last Values POC Glucose 100 (70-105) 02/16/20 19:47 Hemoglobin A1c 5.3 % (4-6) 02/17/20 05:55 Triglycerides 81 mg/dL (2-149) 02/17/20 05:55 Cholesterol 135 mg/dL (50-199) 02/17/20 05:55 LDL Cholesterol Direct 64 mg/dL (50-130) 02/17/20 05:55 HDL Cholesterol 65 mg/dL (40-59) H 06/05/20 05:55 Cholesterol/HDL Ratio 2.07 % 02/17/20 05:55 TSH 1.790 mlU/mL (0.270-4.200) 02/17/20 05:55 Core Measure Documentation - Palliative Care Palliative Care/ Comfort Measures: Not Applicable - Core Measures Any of the following diagnoses?: none Exam - Constitutional Vitals: Temp Pulse Resp BP Pulse Ox 98.5 F 83 18 124/74 98 02/20/20 08:47 02/20/20 08:47 02/20/20 08:47 02/20/20 08:47 02/20/20 08:47 General appearance: Present: no acute distress, well-nourished - EENT Eyes: Present: PERRL, EOM intact ENT: hearing intact, clear oral mucosa - Neck Neck: Present: supple, normal ROM - Respiratory Respiratory effort: normal Plan Activity: advance as tolerated Weight Bearing Status: Weight Bear as Tolerated Follow up with: PRIMARY CARE, [Primary Care Provider] - 7 Days
[2020-02-20] MEDS: NICOTINE 7 MG/24 HR PATCH TD SCH (10:30)
== END 2020-02-20 13:35 | disposition home or self-care (01) | DRG 885 ==
LOC: 3A 12:11 → UNDOADMIN 12:11 → 5A 18:47
PROVIDERS: ADMIT Psychiatry & Neurology Psychiatry; ATTEND Psychiatry & Neurology Psychiatry
DX: F25.1 Schizoaffective disorder, depressive type (principal); F41.9 Anxiety disorder, unspecified; Z88.0 Allergy status to penicillin; Z88.8 Allergy status to other drugs, medicaments and biological substances
CPT/HCPCS: 36415; 80048; 80061; 80164; 80307; 80320; 81001; 82550; 82962; 83036; 83735; 84443; 85025; G0378; G0480

== ENCOUNTER 2020-07-03 06:53 | Emergency (ER) | payer MEDICAID ==
[2020-07-03 07:41] VITALS: BP 172/89
[2020-07-03 08:12] LABS: Bacteria,Urine 1+ /HPF (Negative); Bilirubin,Urine NEG (Negative); Blood,Urine MOD (Negative); Color,Urine Straw (Yellow); Mucus,Urine FEW /HPF; Protein,Urine <15 mg/dL mg/dL (Negative); Urobilinogen,Urine < 2.0 mg/dL (<2.0)
[2020-07-03 08:21] LABS: Hematocrit 38.6 % (30.3-42.9); Hemoglobin 12.7 gm/dl (10.1-14.3); Mean Corpuscular HGB Conc 33 % (30-34); Mean Corpuscular Volume 86 fl (79-97); Platelet Count 206 K/mm3 (140-440); Red Cell Distribution Width 14.2 % (13.2-15.2)
--- NOTE | 2020-07-03 10:37 | Emergency Department Report ---
ED General Adult HPI - General Chief complaint: Vaginal Bleeding Stated complaint: VAGINAL BLEEDING Time Seen by Provider: 07/03/20 10:18 Source: patient Mode of arrival: Ambulatory Limitations: No Limitations - History of Present Illness Initial comments: Patient presents to the emergency department complaining of vaginal bleeding. Patient states that she had a complete hysterectomy years ago. She states that we placed an MARIO into her arm that causes her to grow masses in her pelvis. She also states that the application is causing her multiple orgasms that she wants it removed. Patient also begins to discuss that President Santana and present Tip christian gave her shots to try to control her thinking. I discussed with the patient if she was having any homicidal suicidal thoughts that she declined. She denies any auditory or visual hallucinations but does appear to have some paranoia. When asked about a psych history patient states that's not why she is here. -: unknown Improves with: none Worsens with: none Associated Symptoms: denies other symptoms Treatments Prior to Arrival: none - Related Data Previous Rx's Medication Instructions Recorded Last Taken Type Aspirin [Aspirin BABY CHEW TAB] 81 mg PO QDAY tab.chew 06/12/15 1 Day Ago Rx ~12/16/17 Pantoprazole [Protonix TAB] 40 mg PO QDAY #30 tablet 06/12/15 1 Day Ago Rx ~12/16/17 Cetirizine HCl [Zyrtec 10mg tab] 10 mg PO DAILY #30 tablet 08/22/19 Unknown Rx Ibuprofen [Motrin 800 MG tab] 800 mg PO Q8HR PRN #24 tablet 08/22/19 Unknown Rx Prednisone [predniSONE 10 mg 10 mg PO .TAPER #21 tab.ds.pk 08/22/19 Unknown Rx (6-Day Pack, 21 Tabs)] Promethazine/Phenyleph/Codeine 5 ml PO Q6H PRN #120 ml 08/22/19 Unknown Rx [Promethazine Vc-Codeine Syrup] ARIPiprazole 5 mg PO QDAY #30 tablet 02/20/20 Unknown Rx Nicotine [Habitrol] 7 mg TD QDAY #30 patch 02/20/20 Unknown Rx Valproic Acid [Depakene] 500 mg PO TID #90 capsule 02/20/20 Unknown Rx Venlafaxine [Effexor 25mg tab] 25 mg PO QDAY #30 tablet 02/20/20 Unknown Rx traZODone [Desyrel] 50 mg PO QHS #30 tablet 02/20/20 Unknown Rx Sulfamethoxazole/Trimethoprim 1 each PO BID #14 tablet 07/03/20 Unknown Rx [Bactrim DS TAB] Allergies Allergy/AdvReac Type Severity Reaction Status Date / Time Penicillins Allergy Severe Shortness Verified 02/16/20 01:07 of Breath calcium carbonate Allergy Hives Verified 02/16/20 01:07 [From Pepcid Complete] famotidine Allergy Hives Verified 02/16/20 01:07 [From Pepcid Complete] magnesium Allergy Hives Verified 02/16/20 01:07 [From Pepcid Complete] procaine HCl [From Novocain] Allergy Unknown Verified 02/16/20 01:07 ED Review of Systems ROS: Stated complaint: VAGINAL BLEEDING Other details as noted in HPI Comment: All other systems reviewed and negative Constitutional: denies: chills, fever Eyes: denies: eye pain, eye discharge, vision change ENT: denies: ear pain, throat pain Respiratory: denies: cough, shortness of breath, wheezing Cardiovascular: denies: chest pain, palpitations Endocrine: no symptoms reported Gastrointestinal: denies: abdominal pain, nausea, diarrhea Genitourinary: denies: urgency, dysuria, discharge Musculoskeletal: denies: back pain, joint swelling, arthralgia Skin: denies: rash, lesions Neurological: denies: headache, weakness, paresthesias Psychiatric: denies: anxiety, depression Hematological/Lymphatic: denies: easy bleeding, easy bruising ED Past Medical Hx - Past Medical History Hx CVA: Yes (TIA x2 01/2013, ?2014) Hx Heart Attack/AMI: Yes (2014) Hx Congestive Heart Failure: No Hx Diabetes: No Hx GERD: Yes Hx Renal Disease: No Hx Arthritis: No Hx Headaches / Migraines: Yes (MIGRAINES) Hx Seizures: No Hx Psychiatric Treatment: Yes (schizophrenia, bipolar, anxiety) Hx Asthma: Yes Hx COPD: Yes (chronic bronchitis) Hx Dementia: No Additional medical history: MVP, fibromyalgia Left leg - Surgical History Hx Coronary Stent: Yes Hx Cholecystectomy: No Hx Appendectomy: No Additional Surgical History: hysterectomy. heart cath x 3. tonsillectomy. c- section - Social History Smoking Status: Never Smoker - Medications Home Medications: Home Medications Medication Instructions Recorded Confirmed Last Taken Type Aspirin [Aspirin BABY CHEW TAB] 81 mg PO QDAY tab.chew 06/12/15 02/17/20 1 Day Ago Rx ~12/16/17 Pantoprazole [Protonix TAB] 40 mg PO QDAY #30 tablet 06/12/15 02/17/20 1 Day Ago Rx ~12/16/17 Cetirizine HCl [Zyrtec 10mg tab] 10 mg PO DAILY #30 tablet 08/22/19 02/17/20 Unknown Rx Ibuprofen [Motrin 800 MG tab] 800 mg PO Q8HR PRN #24 tablet 08/22/19 02/17/20 Unknown Rx Prednisone [predniSONE 10 mg 10 mg PO .TAPER #21 tab.ds.pk 08/22/19 02/17/20 Unknown Rx (6-Day Pack, 21 Tabs)] Promethazine/Phenyleph/Codeine 5 ml PO Q6H PRN #120 ml 08/22/19 02/17/20 Unknown Rx [Promethazine Vc-Codeine Syrup] ARIPiprazole 5 mg PO QDAY #30 tablet 02/20/20 Unknown Rx Nicotine [Habitrol] 7 mg TD QDAY #30 patch 02/20/20 Unknown Rx Valproic Acid [Depakene] 500 mg PO TID #90 capsule 02/20/20 Unknown Rx Venlafaxine [Effexor 25mg tab] 25 mg PO QDAY #30 tablet 02/20/20 Unknown Rx traZODone [Desyrel] 50 mg PO QHS #30 tablet 02/20/20 Unknown Rx Sulfamethoxazole/Trimethoprim 1 each PO BID #14 tablet 07/03/20 Unknown Rx [Bactrim DS TAB] ED Physical Exam - General Limitations: No Limitations General appearance: alert, in no apparent distress - Head Head exam: Present: atraumatic, normocephalic - Eye Eye exam: Present: normal appearance, PERRL, EOMI - ENT ENT exam: Present: mucous membranes moist - Neck Neck exam: Present: normal inspection - Respiratory Respiratory exam: Present: normal lung sounds bilaterally. Absent: respiratory distress - Cardiovascular Cardiovascular Exam: Present: regular rate, normal rhythm. Absent: systolic murmur, diastolic murmur, rubs, gallop - GI/Abdominal GI/Abdominal exam: Present: soft, normal bowel sounds. Absent: distended, tenderness - Rectal Rectal exam: Present: deferred - External exam: Present: other (refused) Speculum exam: Present: other (refused) Bi-manual exam: Present: other (refused) - Extremities Exam Extremities exam: Present: normal inspection - Back Exam Back exam: Present: normal inspection - Neurological Exam Neurological exam: Present: alert, oriented X3, CN II-XII intact. Absent: motor sensory deficit - Psychiatric Psychiatric exam: Present: normal affect, normal mood - Skin Skin exam: Present: warm, dry, intact, normal color. Absent: rash ED Course Vital Signs 07/03/20 07:37 Temperature 97.9 F Pulse Rate 81 Respiratory 18 Rate Blood Pressure 172/89 O2 Sat by Pulse 98 Oximetry ED Medical Decision Making - Lab Data Result diagrams: 07/03/20 08:04 Lab Results 07/03/20 07/03/20 Range/Units 08:04 Unknown WBC 4.9 (4.5-11.0) K/mm3 RBC 4.50 (3.65-5.03) M/mm3 Hgb 12.7 (10.1-14.3) gm/dl Hct 38.6 (30.3-42.9) % MCV 86 (79-97) fl MCH 28 (28-32) pg MCHC 33 (30-34) % RDW 14.2 (13.2-15.2) % Plt Count 206 (140-440) K/mm3 Urine Color Straw (Yellow) Urine Turbidity Clear (Clear) Urine pH 5.0 (5.0-7.0) Ur Specific [place] 1.012 (1.003-1.030) Urine Protein <15 mg/dl (Negative) mg/dL Urine Glucose (UA) Neg (Negative) mg/dL Urine Ketones Neg (Negative) mg/dL Urine Blood Mod (Negative) Urine Nitrite Neg (Negative) Urine Bilirubin Neg (Negative) Urine Urobilinogen < 2.0 (<2.0) mg/dL Ur Leukocyte Esterase Neg (Negative) Urine WBC (Auto) 7.0 H (0.0-6.0) /HPF Urine RBC (Auto) 1.0 (0.0-6.0) /HPF U Epithel Cells (Auto) < 1.0 (0-13.0) /HPF Urine Bacteria (Auto) 1+ (Negative) /HPF Urine Mucus Few /HPF - Medical Decision Making Discussed transvaginal ultrasound with the patient and she informed me that you guys do not do this here so you have to see me somewhere else. Critical care attestation.: If time is entered above; I have spent that time in minutes in the direct care of this critically ill patient, excluding procedure time. ED Disposition Clinical Impression: ASB (asymptomatic bacteriuria), Vaginal bleeding Disposition: OP ADMIT IP TO THIS HOSP Is pt being admited?: No Does the pt Need Aspirin: No Condition: Stable Instructions: Urinary Tract Infection in Women (ED) Additional Instructions: return if worse Referrals: PRIMARY CARE, [Primary Care Provider] - 3-[address] [facility] [place] [Outside] - 3-5 Days Time of Disposition: 10:37
== END 2020-07-03 10:50 | disposition admitted as inpatient to this hospital (09) ==
LOC: ED 06:53
DX: N93.9 Abnormal uterine and vaginal bleeding, unspecified (principal); R82.71 Bacteriuria; I25.2 Old myocardial infarction; K21.9 Gastro-esophageal reflux disease without esophagitis; G43.909 Migraine, unspecified, not intractable, without status migrainosus; F41.9 Anxiety disorder, unspecified; F25.0 Schizoaffective disorder, bipolar type; J44.9 Chronic obstructive pulmonary disease, unspecified; Z90.49 Acquired absence of other specified parts of digestive tract; Z88.0 Allergy status to penicillin; Z88.8 Allergy status to other drugs, medicaments and biological substances; Z79.899 Other long term (current) drug therapy; Z90.710 Acquired absence of both cervix and uterus; Z86.73 Personal history of transient ischemic attack (TIA), and cerebral infarction without residual deficits; Z95.5 Presence of coronary angioplasty implant and graft; Z98.890 Other specified postprocedural states
CPT/HCPCS: 36415; 81001; 85027

== ENCOUNTER 2020-07-20 08:38 | Emergency (ER) | payer MEDICAID ==
[2020-07-20 08:54] VITALS: BP 143/71
[2020-07-20 09:30] LABS: Bacteria,Urine 1+ /HPF (Negative); Bilirubin,Urine NEG (Negative); Blood,Urine NEG (Negative); Color,Urine Yellow (Yellow); Mucus,Urine 1+ /HPF
--- NOTE | 2020-07-20 09:35 | Emergency Department Report ---
ED Female HPI - General Chief complaint: Urogenital-Female Stated complaint: UTI Time Seen by Provider: 07/20/20 09:07 Source: patient Mode of arrival: Ambulatory Limitations: No Limitations - Related Data Previous Rx's Medication Instructions Recorded Last Taken Type Aspirin [Aspirin BABY CHEW TAB] 81 mg PO QDAY tab.chew 06/12/15 1 Day Ago Rx ~12/16/17 Pantoprazole [Protonix TAB] 40 mg PO QDAY #30 tablet 06/12/15 1 Day Ago Rx ~12/16/17 Cetirizine HCl [Zyrtec 10mg tab] 10 mg PO DAILY #30 tablet 08/22/19 Unknown Rx Ibuprofen [Motrin 800 MG tab] 800 mg PO Q8HR PRN #24 tablet 08/22/19 Unknown Rx Prednisone [predniSONE 10 mg 10 mg PO .TAPER #21 tab.ds.pk 08/22/19 Unknown Rx (6-Day Pack, 21 Tabs)] Promethazine/Phenyleph/Codeine 5 ml PO Q6H PRN #120 ml 08/22/19 Unknown Rx [Promethazine Vc-Codeine Syrup] ARIPiprazole 5 mg PO QDAY #30 tablet 02/20/20 Unknown Rx Nicotine [Habitrol] 7 mg TD QDAY #30 patch 02/20/20 Unknown Rx Valproic Acid [Depakene] 500 mg PO TID #90 capsule 02/20/20 Unknown Rx Venlafaxine [Effexor 25mg tab] 25 mg PO QDAY #30 tablet 02/20/20 Unknown Rx traZODone [Desyrel] 50 mg PO QHS #30 tablet 02/20/20 Unknown Rx Fluconazole (Nf) [Diflucan TAB] 150 mg PO ONCE 1 Days #1 tablet 07/03/20 Unknown Rx Sulfamethoxazole/Trimethoprim 1 each PO BID #14 tablet 07/03/20 Unknown Rx [Bactrim DS TAB] Allergies Allergy/AdvReac Type Severity Reaction Status Date / Time Penicillins Allergy Severe Shortness Verified 02/16/20 01:07 of Breath calcium carbonate Allergy Hives Verified 02/16/20 01:07 [From Pepcid Complete] famotidine Allergy Hives Verified 02/16/20 01:07 [From Pepcid Complete] magnesium Allergy Hives Verified 02/16/20 01:07 [From Pepcid Complete] procaine HCl [From Novocain] Allergy Unknown Verified 02/16/20 01:07 ED Review of Systems ROS: Stated complaint: UTI Other details as noted in HPI ED Past Medical Hx - Past Medical History Previous Medical History?: Yes Hx CVA: Yes (TIA x2 01/2013, ?2014) Hx Heart Attack/AMI: Yes (2014) Hx Congestive Heart Failure: No Hx Diabetes: No Hx GERD: Yes Hx Renal Disease: No Hx Arthritis: No Hx Headaches / Migraines: Yes (MIGRAINES) Hx Seizures: No Hx Psychiatric Treatment: Yes (schizophrenia, bipolar, anxiety) Hx Asthma: Yes Hx COPD: Yes (chronic bronchitis) Hx Dementia: No Additional medical history: MVP, fibromyalgia Left leg - Surgical History Past Surgical History?: Yes Hx Coronary Stent: Yes Hx Cholecystectomy: No Hx Appendectomy: No Additional Surgical History: hysterectomy. heart cath x 3. tonsillectomy. c- section - Social History Smoking Status: Never Smoker Substance Use Type: Alcohol - Medications Home Medications: Home Medications Medication Instructions Recorded Confirmed Last Taken Type Aspirin [Aspirin BABY CHEW TAB] 81 mg PO QDAY tab.chew 06/12/15 02/17/20 1 Day Ago Rx ~12/16/17 Pantoprazole [Protonix TAB] 40 mg PO QDAY #30 tablet 06/12/15 02/17/20 1 Day Ago Rx ~12/16/17 Cetirizine HCl [Zyrtec 10mg tab] 10 mg PO DAILY #30 tablet 08/22/19 02/17/20 Unknown Rx Ibuprofen [Motrin 800 MG tab] 800 mg PO Q8HR PRN #24 tablet 08/22/19 02/17/20 Unknown Rx Prednisone [predniSONE 10 mg 10 mg PO .TAPER #21 tab.ds.pk 08/22/19 02/17/20 Unknown Rx (6-Day Pack, 21 Tabs)] Promethazine/Phenyleph/Codeine 5 ml PO Q6H PRN #120 ml 08/22/19 02/17/20 Unknown Rx [Promethazine Vc-Codeine Syrup] ARIPiprazole 5 mg PO QDAY #30 tablet 02/20/20 Unknown Rx Nicotine [Habitrol] 7 mg TD QDAY #30 patch 02/20/20 Unknown Rx Valproic Acid [Depakene] 500 mg PO TID #90 capsule 02/20/20 Unknown Rx Venlafaxine [Effexor 25mg tab] 25 mg PO QDAY #30 tablet 02/20/20 Unknown Rx traZODone [Desyrel] 50 mg PO QHS #30 tablet 02/20/20 Unknown Rx Fluconazole (Nf) [Diflucan TAB] 150 mg PO ONCE 1 Days #1 tablet 07/03/20 Unknown Rx Sulfamethoxazole/Trimethoprim 1 each PO BID #14 tablet 07/03/20 Unknown Rx [Bactrim DS TAB] ED Physical Exam - General Limitations: No Limitations ED Course Vital Signs 07/20/20 08:46 Temperature 98.4 F Pulse Rate 88 Respiratory 16 Rate Blood Pressure 143/71 O2 Sat by Pulse 98 Oximetry Critical care attestation.: If time is entered above; I have spent that time in minutes in the direct care of this critically ill patient, excluding procedure time. ED Disposition Condition: Stable Referrals: PRIMARY CARE, [Primary Care Provider] - 3-5 Days
--- NOTE | 2020-07-20 09:37 | Emergency Department Report ---
Chief Complaint: Urogenital-Female Stated Complaint: UTI Time Seen by Provider: 07/20/20 09:07 - HPI History of Present Illness: The patient was evaluated in the emergency department for symptoms described in the history of present illness. He/she was evaluated in the context of the global COVID-19 pandemic, which necessitated consideration that the patient might be at risk for infection with the virus that causes COVID-19. Institutional protocols and algorithms that pertain to the evaluation of patients at risk for COVID-19 are in a state of rapid change based on information released by regulatory bodies including the CDC and federal and state organizations. These policies and algorithms were followed during the patient's care in the emergency department. Please note that these policies, procedures and recommendations changed on a rapid basis. 50-year-old obese -Citizen Of [place] female comes in stating she has a nodule to - Exam Vital Signs: Vital Signs 07/20/20 08:46 Temperature 98.4 F Pulse Rate 88 Respiratory 16 Rate Blood Pressure 143/71 O2 Sat by Pulse 98 Oximetry MSE screening note: Focused history and physical exam performed. Due to findings the following was ordered: ED Disposition for MSE Condition: Stable Referrals: PRIMARY CARE, [Primary Care Provider] - 3-5 Days
--- NOTE | 2020-07-20 10:04 | Emergency Department Report ---
ED Female HPI - General Chief complaint: Urogenital-Female Stated complaint: UTI Time Seen by Provider: 07/20/20 09:07 Source: patient Mode of arrival: Ambulatory Limitations: No Limitations - History of Present Illness Initial comments: 50-year-old -[place] female presents to the emergency room for follow-up on her bladder infection. Patient denies any pain but states she has an odor to her vaginal area. Patient states she has completed her antibiotics that she started on on 07/03/2020. Patient denies any fever chills no nausea no vomiting or abdominal pelvic pain. Onset/Timin -: week(s) Severity scale (0 -10): 0 Consistency: now resolved Improves with: medication Worsens with: none Are you Now?: No - Related Data Previous Rx's Medication Instructions Recorded Last Taken Type Aspirin [Aspirin BABY CHEW TAB] 81 mg PO QDAY tab.chew 06/12/15 1 Day Ago Rx ~12/16/17 Pantoprazole [Protonix TAB] 40 mg PO QDAY #30 tablet 06/12/15 1 Day Ago Rx ~12/16/17 Cetirizine HCl [Zyrtec 10mg tab] 10 mg PO DAILY #30 tablet 08/22/19 Unknown Rx Ibuprofen [Motrin 800 MG tab] 800 mg PO Q8HR PRN #24 tablet 08/22/19 Unknown Rx Prednisone [predniSONE 10 mg 10 mg PO .TAPER #21 tab.ds.pk 08/22/19 Unknown Rx (6-Day Pack, 21 Tabs)] Promethazine/Phenyleph/Codeine 5 ml PO Q6H PRN #120 ml 08/22/19 Unknown Rx [Promethazine Vc-Codeine Syrup] ARIPiprazole 5 mg PO QDAY #30 tablet 02/20/20 Unknown Rx Nicotine [Habitrol] 7 mg TD QDAY #30 patch 02/20/20 Unknown Rx Valproic Acid [Depakene] 500 mg PO TID #90 capsule 02/20/20 Unknown Rx Venlafaxine [Effexor 25mg tab] 25 mg PO QDAY #30 tablet 02/20/20 Unknown Rx traZODone [Desyrel] 50 mg PO QHS #30 tablet 02/20/20 Unknown Rx Fluconazole (Nf) [Diflucan TAB] 150 mg PO ONCE 1 Days #1 tablet 07/03/20 Unknown Rx Sulfamethoxazole/Trimethoprim 1 each PO BID #14 tablet 07/03/20 Unknown Rx [Bactrim DS TAB] Allergies Allergy/AdvReac Type Severity Reaction Status Date / Time Penicillins Allergy Severe Shortness Verified 02/16/20 01:07 of Breath calcium carbonate Allergy Hives Verified 02/16/20 01:07 [From Pepcid Complete] famotidine Allergy Hives Verified 02/16/20 01:07 [From Pepcid Complete] magnesium Allergy Hives Verified 02/16/20 01:07 [From Pepcid Complete] procaine HCl [From Novocain] Allergy Unknown Verified 02/16/20 01:07 ED Review of Systems ROS: Stated complaint: UTI Other details as noted in HPI Comment: All other systems reviewed and negative ED Past Medical Hx - Past Medical History Previous Medical History?: Yes Hx CVA: Yes (TIA x2 01/2013, ?2014) Hx Heart Attack/AMI: Yes (2014) Hx Congestive Heart Failure: No Hx Diabetes: No Hx GERD: Yes Hx Renal Disease: No Hx Arthritis: No Hx Headaches / Migraines: Yes (MIGRAINES) Hx Seizures: No Hx Psychiatric Treatment: Yes (schizophrenia, bipolar, anxiety) Hx Asthma: Yes Hx COPD: Yes (chronic bronchitis) Hx Dementia: No Additional medical history: MVP, fibromyalgia Left leg - Surgical History Past Surgical History?: Yes Hx Coronary Stent: Yes Hx Cholecystectomy: No Hx Appendectomy: No Additional Surgical History: hysterectomy. heart cath x 3. tonsillectomy. c- section - Social History Smoking Status: Never Smoker Substance Use Type: Alcohol - Medications Home Medications: Home Medications Medication Instructions Recorded Confirmed Last Taken Type Aspirin [Aspirin BABY CHEW TAB] 81 mg PO QDAY tab.chew 06/12/15 02/17/20 1 Day Ago Rx ~12/16/17 Pantoprazole [Protonix TAB] 40 mg PO QDAY #30 tablet 06/12/15 02/17/20 1 Day Ago Rx ~12/16/17 Cetirizine HCl [Zyrtec 10mg tab] 10 mg PO DAILY #30 tablet 08/22/19 02/17/20 Unknown Rx Ibuprofen [Motrin 800 MG tab] 800 mg PO Q8HR PRN #24 tablet 08/22/19 02/17/20 Unknown Rx Prednisone [predniSONE 10 mg 10 mg PO .TAPER #21 tab.ds.pk 08/22/19 02/17/20 Unknown Rx (6-Day Pack, 21 Tabs)] Promethazine/Phenyleph/Codeine 5 ml PO Q6H PRN #120 ml 08/22/19 02/17/20 Unknown Rx [Promethazine Vc-Codeine Syrup] ARIPiprazole 5 mg PO QDAY #30 tablet 02/20/20 Unknown Rx Nicotine [Habitrol] 7 mg TD QDAY #30 patch 02/20/20 Unknown Rx Valproic Acid [Depakene] 500 mg PO TID #90 capsule 02/20/20 Unknown Rx Venlafaxine [Effexor 25mg tab] 25 mg PO QDAY #30 tablet 02/20/20 Unknown Rx traZODone [Desyrel] 50 mg PO QHS #30 tablet 02/20/20 Unknown Rx Fluconazole (Nf) [Diflucan TAB] 150 mg PO ONCE 1 Days #1 tablet 07/03/20 Unknown Rx Sulfamethoxazole/Trimethoprim 1 each PO BID #14 tablet 07/03/20 Unknown Rx [Bactrim DS TAB] ED Physical Exam - General Limitations: No Limitations General appearance: alert, in no apparent distress - Head Head exam: Present: atraumatic, normocephalic - Eye Eye exam: Present: normal appearance - ENT ENT exam: Present: mucous membranes dry - Neck Neck exam: Present: normal inspection - Respiratory Respiratory exam: Absent: accessory muscle use - GI/Abdominal GI/Abdominal exam: Present: soft. Absent: distended, tenderness - Neurological Exam Neurological exam: Present: alert, oriented X3 - Psychiatric Psychiatric exam: Present: normal affect, normal mood - Skin Skin exam: Present: warm, dry, intact, normal color. Absent: rash ED Course Vital Signs 07/20/20 07/20/20 08:46 09:35 Temperature 98.4 F Pulse Rate 88 Respiratory 16 18 Rate Blood Pressure 143/71 O2 Sat by Pulse 98 99 Oximetry ED Medical Decision Making - Medical Decision Making 50-year-old -[place] female presents to the emergency room for follow-up on her bladder infection. Patient denies any pain but states she has an odor to her vaginal area. Patient states she has completed her antibiotics that she started on on 07/03/2020. Patient denies any fever chills no nausea no vomiting or abdominal pelvic pain. Urinalysis shows large amount of epithelial cells small amount of leukoesterase small amount of ketones. Patient is to follow-up with her DETECTIVE. Critical care attestation.: If time is entered above; I have spent that time in minutes in the direct care of this critically ill patient, excluding procedure time. ED Disposition Clinical Impression: Vaginal odor Disposition: DC- TO HOME OR SELFCARE Is pt being admited?: No Does the pt Need Aspirin: No Condition: Stable Additional Instructions: UTI is resolving. Increase your water intake. Follow-up with an DETECTIVE for any further concerns for vaginal odor. Referrals: PRIMARY CARE, [Primary Care Provider] - 3-5 Days [facility] [Provider Group] - 3-5 Days [facility] [Provider Group] - 3-5 Days [facility] [Provider Group] - 3-5 Days
== END 2020-07-20 10:10 | disposition home or self-care (01) ==
LOC: ED 08:38
DX: N89.8 Other specified noninflammatory disorders of vagina (principal); K21.9 Gastro-esophageal reflux disease without esophagitis; G43.909 Migraine, unspecified, not intractable, without status migrainosus; F20.9 Schizophrenia, unspecified; J44.9 Chronic obstructive pulmonary disease, unspecified; I25.2 Old myocardial infarction; Z86.73 Personal history of transient ischemic attack (TIA), and cerebral infarction without residual deficits; Z90.710 Acquired absence of both cervix and uterus; Z90.89 Acquired absence of other organs; Z98.890 Other specified postprocedural states; Z79.1 Long term (current) use of non-steroidal anti-inflammatories (NSAID); Z79.899 Other long term (current) drug therapy; Z88.0 Allergy status to penicillin; Z88.8 Allergy status to other drugs, medicaments and biological substances
CPT/HCPCS: 81001; 87086

== ENCOUNTER 2020-08-31 07:59 | Emergency (ER) | payer MEDICAID ==
[2020-08-31 09:22] LABS: Amphetamine Screen,Urine Negative; Benzodiazepines Screen,Urine Negative; Cannabinoid Screen,Urine Negative; Cocaine Screen,Urine Negative; Methadone Screen,Urine Negative; Opiate Screen,Urine Negative
[2020-08-31 09:23] LABS: Basophils % (Auto) 0.3 % (0.0-1.8); Eosinophils % (Auto) 0.3 % (0.0-4.3); Hemoglobin 13.4 gm/dl (10.1-14.3); Lymphocytes # (Auto) 1.7 K/mm3 (1.2-5.4); Lymphocytes % (Auto) 37.8 % (13.4-35.0); Mean Corpuscular HGB Conc 35 % (30-34); Mean Corpuscular Volume 86 fl (79-97); Monocytes # (Auto) 0.3 K/mm3 (0.0-0.8); Monocytes % (Auto) 5.8 % (0.0-7.3); Platelet Count 213 K/mm3 (140-440); Red Blood Count 4.55 M/mm3 (3.65-5.03); Red Cell Distribution Width 13.9 % (13.2-15.2)
[2020-08-31 09:30] LABS: Bilirubin,Urine NEG (Negative); Blood,Urine MOD (Negative); Color,Urine Yellow (Yellow); Mucus,Urine 3+ /HPF; Protein,Urine <15 mg/dL mg/dL (Negative); Urobilinogen,Urine < 2.0 mg/dL (<2.0)
[2020-08-31 10:40] LABS: Blood Urea Nitrogen 10 mg/dL (7-17); Calcium 10.4 mg/dL (8.4-10.2); Hemolysis Index 4
[2020-08-31 10:47] LABS: BUN/Creatinine Ratio 14
--- NOTE | 2020-08-31 15:05 | Emergency Department Report ---
ED Psych HPI - General Chief Complaint: Psych Stated Complaint: CHRIS NEGRO Time Seen by Provider: 08/31/20 13:13 Source: patient Mode of arrival: Ambulatory Limitations: No Limitations - History of Present Illness Initial Comments: 50-year-old female with a past medical history of schizophrenia, bipolar, anxiety, fibromyalgia, mitral valve prolapse, TIA, migraines, and asthma presents to the hospital complaints of hallucinations. Patient is having audit ory visual hallucinations that are impeding her ability to sleep and causing her to have frequent anxiety attacks. Patient states she has visual hallucinations of 2 men fighting with an older her who have 2 children a piece. She also hears and sees these men speaking to her and children calling her mama. She states that time she has a an explosive sound in her head followed by palpitations and nausea feeling in her stomach which she describes as anxiety. She calmed self down by singing [employer] songs and she hears God speaking to her which also makes her feel better. Patient denies suicidal ideation, homicidal ideation, or physical complaints at this time. She states her last inpatient hospitalization she had a hypertensive response to a "sleeping medication" and therefore when she was discharged she was not provided any psychiatric medication. Patient states she has not slept in 3 days drug use and drinks a beer daily - Related Data Previous Rx's Medication Instructions Recorded Last Taken Type Aspirin [Aspirin BABY CHEW TAB] 81 mg PO QDAY tab.chew 06/12/15 1 Day Ago Rx ~12/16/17 Pantoprazole [Protonix TAB] 40 mg PO QDAY #30 tablet 06/12/15 1 Day Ago Rx ~12/16/17 Cetirizine HCl [Zyrtec 10mg tab] 10 mg PO DAILY #30 tablet 08/22/19 Unknown Rx Ibuprofen [Motrin 800 MG tab] 800 mg PO Q8HR PRN #24 tablet 08/22/19 Unknown Rx Prednisone [predniSONE 10 mg 10 mg PO .TAPER #21 tab.ds.pk 08/22/19 Unknown Rx (6-Day Pack, 21 Tabs)] Promethazine/Phenyleph/Codeine 5 ml PO Q6H PRN #120 ml 08/22/19 Unknown Rx [Promethazine Vc-Codeine Syrup] ARIPiprazole 5 mg PO QDAY #30 tablet 02/20/20 Unknown Rx Nicotine [Habitrol] 7 mg TD QDAY #30 patch 02/20/20 Unknown Rx Valproic Acid [Depakene] 500 mg PO TID #90 capsule 02/20/20 Unknown Rx Venlafaxine [Effexor 25mg tab] 25 mg PO QDAY #30 tablet 02/20/20 Unknown Rx traZODone [Desyrel] 50 mg PO QHS #30 tablet 02/20/20 Unknown Rx Fluconazole (Nf) [Diflucan TAB] 150 mg PO ONCE 1 Days #1 tablet 07/03/20 Unknown Rx Sulfamethoxazole/Trimethoprim 1 each PO BID #14 tablet 07/03/20 Unknown Rx [Bactrim DS TAB] Allergies Allergy/AdvReac Type Severity Reaction Status Date / Time Penicillins Allergy Severe Shortness Verified 02/16/20 01:07 of Breath calcium carbonate Allergy Hives Verified 02/16/20 01:07 [From Pepcid Complete] famotidine Allergy Hives Verified 02/16/20 01:07 [From Pepcid Complete] magnesium Allergy Hives Verified 02/16/20 01:07 [From Pepcid Complete] procaine HCl [From Novocain] Allergy Unknown Verified 02/16/20 01:07 ED Review of Systems ROS: Stated complaint: MH EVAL Other details as noted in HPI Comment: All other systems reviewed and negative ED Past Medical Hx - Past Medical History Previous Medical History?: Yes Hx CVA: Yes (TIA x2 01/2013, ?2015) Hx Heart Attack/AMI: Yes (2014) Hx Congestive Heart Failure: No Hx Diabetes: No Hx GERD: Yes Hx Renal Disease: No Hx Arthritis: No Hx Headaches / Migraines: Yes (MIGRAINES) Hx Seizures: No Hx Psychiatric Treatment: Yes (schizophrenia, bipolar, anxiety) Hx Asthma: Yes Hx COPD: Yes (chronic bronchitis) Hx Dementia: No Additional medical history: MVP, fibromyalgia Left leg - Surgical History Past Surgical History?: Yes Hx Coronary Stent: Yes Hx Cholecystectomy: No Hx Appendectomy: No Additional Surgical History: hysterectomy. heart cath x 3. tonsillectomy. c- section - Social History Smoking Status: Never Smoker Substance Use Type: Alcohol - Medications Home Medications: Home Medications Medication Instructions Recorded Confirmed Last Taken Type Aspirin [Aspirin BABY CHEW TAB] 81 mg PO QDAY tab.chew 06/12/15 02/17/20 1 Day Ago Rx ~12/16/17 Pantoprazole [Protonix TAB] 40 mg PO QDAY #30 tablet 06/12/15 02/17/20 1 Day Ago Rx ~12/16/17 Cetirizine HCl [Zyrtec 10mg tab] 10 mg PO DAILY #30 tablet 08/22/19 02/17/20 Unknown Rx Ibuprofen [Motrin 800 MG tab] 800 mg PO Q8HR PRN #24 tablet 08/22/19 02/17/20 Unknown Rx Prednisone [predniSONE 10 mg 10 mg PO .TAPER #21 tab.ds.pk 08/22/19 02/17/20 Unknown Rx (6-Day Pack, 21 Tabs)] Promethazine/Phenyleph/Codeine 5 ml PO Q6H PRN #120 ml 08/22/19 02/17/20 Unknown Rx [Promethazine Vc-Codeine Syrup] ARIPiprazole 5 mg PO QDAY #30 tablet 02/20/20 Unknown Rx Nicotine [Habitrol] 7 mg TD QDAY #30 patch 02/20/20 Unknown Rx Valproic Acid [Depakene] 500 mg PO TID #90 capsule 02/20/20 Unknown Rx Venlafaxine [Effexor 25mg tab] 25 mg PO QDAY #30 tablet 02/20/20 Unknown Rx traZODone [Desyrel] 50 mg PO QHS #30 tablet 02/20/20 Unknown Rx Fluconazole (Nf) [Diflucan TAB] 150 mg PO ONCE 1 Days #1 tablet 07/03/20 Unknown Rx Sulfamethoxazole/Trimethoprim 1 each PO BID #14 tablet 07/03/20 Unknown Rx [Bactrim DS TAB] ED Physical Exam - General Limitations: No Limitations - Other Other exam information: General: No acute distress Head: Atraumatic Eyes: normal appearance ENT: Moist mucous membranes Neck: Normal appearance, no midline tenderness Chest: Clear to auscultation bilaterally CV: Regular rate and rhythm Abdomen: Soft, normal bowel sounds, nontender, nondistended, no rebound or guarding Back: Normal inspection Extremity: Normal inspection, full range of motion Neuro: Alert O x 3, no facial asymmetry, speech clear, no gross motor sensory deficit Psych: calm, cooperative Skin: No rash ED Course Vital Signs 08/31/20 08/31/20 09:06 13:20 Temperature 98.0 F 97.6 F Pulse Rate 74 82 Respiratory 16 18 Rate Blood Pressure 165/78 152/81 [Right] O2 Sat by Pulse 99 99 Oximetry ED Medical Decision Making - Lab Data Result diagrams: 08/31/20 09:10 08/31/20 09:10 Lab Results 08/31/20 08/31/20 08/31/20 Range/Units 08:50 08:50 09:10 WBC (4.5-11.0) K/mm3 RBC (3.65-5.03) M/mm3 Hgb (10.1-14.3) gm/dl Hct (30.3-42.9) % MCV (79-97) fl MCH (28-32) pg MCHC (30-34) % RDW (13.2-15.2) % Plt Count (140-440) K/mm3 Lymph % (Auto) (13.4-35.0) % Divide % (Auto) (0.0-7.3) % Eos % (Auto) (0.0-4.3) % Baso % (Auto) (0.0-1.8) % Lymph # (Auto) (1.2-5.4) K/mm3 Divide # (Auto) (0.0-0.8) K/mm3 Eos # (Auto) (0.0-0.4) K/mm3 Baso # (Auto) (0.0-0.1) K/mm3 Seg Neutrophils % (40.0-70.0) % Seg Neutrophils # (1.8-7.7) K/mm3 Sodium (137-145) mmol/L Potassium (3.6-5.0) mmol/L Chloride (98-107) mmol/L Carbon Dioxide (22-30) mmol/L Anion Gap mmol/L BUN (7-17) mg/dL Creatinine (0.6-1.2) mg/dL Estimated GFR ml/min BUN/Creatinine Ratio % Glucose (65-100) mg/dL Calcium (8.4-10.2) mg/dL Urine Color Yellow (Yellow) Urine Turbidity Slightly-cloudy (Clear) Urine pH 5.0 (5.0-7.0) Ur Specific [place] 1.021 (1.003-1.030) Urine Protein <15 mg/dl (Negative) mg/dL Urine Glucose (UA) Neg (Negative) mg/dL Urine Ketones Tr (Negative) mg/dL Urine Blood Mod (Negative) Urine Nitrite Neg (Negative) Urine Bilirubin Neg (Negative) Urine Urobilinogen < 2.0 (<2.0) mg/dL Ur Leukocyte Esterase Neg (Negative) Urine WBC (Auto) 2.0 (0.0-6.0) /HPF Urine RBC (Auto) 8.0 (0.0-6.0) /HPF U Epithel Cells (Auto) 10.0 (0-13.0) /HPF Urine Mucus 3+ /HPF Salicylates < 0.3 L (2.8-20.0) mg/dL Urine Opiates Screen Negative Urine Methadone Screen Negative Acetaminophen (10.0-30.0) ug/mL Ur Barbiturates Screen Negative Ur Phencyclidine Scrn Negative Ur Amphetamines Screen Negative U Benzodiazepines Scrn Negative Urine Cocaine Screen Negative U Marijuana (THC) Screen Negative Drugs of Abuse Note Disclamer Plasma/Serum Alcohol (0-0.07) % 08/31/20 08/31/20 08/31/20 Range/Units 09:10 09:10 09:10 WBC (4.5-11.0) K/mm3 RBC (3.65-5.03) M/mm3 Hgb (10.1-14.3) gm/dl Hct (30.3-42.9) % MCV (79-97) fl MCH (28-32) pg MCHC (30-34) % RDW (13.2-15.2) % Plt Count (140-440) K/mm3 Lymph % (Auto) (13.4-35.0) % Divide % (Auto) (0.0-7.3) % Eos % (Auto) (0.0-4.3) % Baso % (Auto) (0.0-1.8) % Lymph # (Auto) (1.2-5.4) K/mm3 Divide # (Auto) (0.0-0.8) K/mm3 Eos # (Auto) (0.0-0.4) K/mm3 Baso # (Auto) (0.0-0.1) K/mm3 Seg Neutrophils % (40.0-70.0) % Seg Neutrophils # (1.8-7.7) K/mm3 Sodium 149 H (137-145) mmol/L Potassium 3.8 (3.6-5.0) mmol/L Chloride 110.9 H (98-107) mmol/L Carbon Dioxide 23 (22-30) mmol/L Anion Gap 19 mmol/L BUN 10 (7-17) mg/dL Creatinine 0.7 (0.6-1.2) mg/dL Estimated GFR > 60 ml/min BUN/Creatinine Ratio 14 % Glucose 102 H (65-100) mg/dL Calcium 10.4 H (8.4-10.2) mg/dL Urine Color (Yellow) Urine Turbidity (Clear) Urine pH (5.0-7.0) Ur Specific [place] (1.003-1.030) Urine Protein (Negative) mg/dL Urine Glucose (UA) (Negative) mg/dL Urine Ketones (Negative) mg/dL Urine Blood (Negative) Urine Nitrite (Negative) Urine Bilirubin (Negative) Urine Urobilinogen (<2.0) mg/dL Ur Leukocyte Esterase (Negative) Urine WBC (Auto) (0.0-6.0) /HPF Urine RBC (Auto) (0.0-6.0) /HPF U Epithel Cells (Auto) (0-13.0) /HPF Urine Mucus /HPF Salicylates (2.8-20.0) mg/dL Urine Opiates Screen Urine Methadone Screen Acetaminophen 5.0 L (10.0-30.0) ug/mL Ur Barbiturates Screen Ur Phencyclidine Scrn Ur Amphetamines Screen U Benzodiazepines Scrn Urine Cocaine Screen U Marijuana (THC) Screen Drugs of Abuse Note Plasma/Serum Alcohol < 0.01 (0-0.07) % 08/31/20 Range/Units 09:10 WBC 4.5 (4.5-11.0) K/mm3 RBC 4.55 (3.65-5.03) M/mm3 Hgb 13.4 (10.1-14.3) gm/dl Hct 39.0 (30.3-42.9) % MCV 86 (79-97) fl MCH 30 (28-32) pg MCHC 35 H (30-34) % RDW 13.9 (13.2-15.2) % Plt Count 213 (140-440) K/mm3 Lymph % (Auto) 37.8 H (13.4-35.0) % Divide % (Auto) 5.8 (0.0-7.3) % Eos % (Auto) 0.3 (0.0-4.3) % Baso % (Auto) 0.3 (0.0-1.8) % Lymph # (Auto) 1.7 (1.2-5.4) K/mm3 Divide # (Auto) 0.3 (0.0-0.8) K/mm3 Eos # (Auto) 0.0 (0.0-0.4) K/mm3 Baso # (Auto) 0.0 (0.0-0.1) K/mm3 Seg Neutrophils % 55.8 (40.0-70.0) % Seg Neutrophils # 2.5 (1.8-7.7) K/mm3 Sodium (137-145) mmol/L Potassium (3.6-5.0) mmol/L Chloride (98-107) mmol/L Carbon Dioxide (22-30) mmol/L Anion Gap mmol/L BUN (7-17) mg/dL Creatinine (0.6-1.2) mg/dL Estimated GFR ml/min BUN/Creatinine Ratio % Glucose (65-100) mg/dL Calcium (8.4-10.2) mg/dL Urine Color (Yellow) Urine Turbidity (Clear) Urine pH (5.0-7.0) Ur Specific [place] (1.003-1.030) Urine Protein (Negative) mg/dL Urine Glucose (UA) (Negative) mg/dL Urine Ketones (Negative) mg/dL Urine Blood (Negative) Urine Nitrite (Negative) Urine Bilirubin (Negative) Urine Urobilinogen (<2.0) mg/dL Ur Leukocyte Esterase (Negative) Urine WBC (Auto) (0.0-6.0) /HPF Urine RBC (Auto) (0.0-6.0) /HPF U Epithel Cells (Auto) (0-13.0) /HPF Urine Mucus /HPF Salicylates (2.8-20.0) mg/dL Urine Opiates Screen Urine Methadone Screen Acetaminophen (10.0-30.0) ug/mL Ur Barbiturates Screen Ur Phencyclidine Scrn Ur Amphetamines Screen U Benzodiazepines Scrn Urine Cocaine Screen U Marijuana (THC) Screen Drugs of Abuse Note Plasma/Serum Alcohol (0-0.07) % - Medical Decision Making 50-year-old female presents to the hospital with auditory visual hallucinations with increased anxiety and inability to sleep. Patient does have laboratories findings suggestive of mild dehydration and therefore p.o. water hydration recommended. Patient is otherwise medically cleared for psychiatric admission and 1013 has been signed Critical Care Time: No Critical care attestation.: If time is entered above; I have spent that time in minutes in the direct care of this critically ill patient, excluding procedure time. ED Disposition Clinical Impression: Acute psychosis, Schizophrenia, Bipolar disorder, Atypical chest pain, Dehydration, Medical clearance for psychiatric admission Disposition: [id number]/[id number] PSY HOSP/PSY UNIT Is pt being admited?: No Condition: Stable Instructions: Chest Pain (ED) Time of Disposition: 15:13
--- NOTE | 2020-09-01 08:43 | Consultation ---
History of Present Illness - Reason for Consult Consult date: 09/01/20 Reason for consult: hallucinations - History of Present Psychiatric Illness April Alberto is a 50y/o female patient with a history of schizophrenia, bipolar and anxiety, who presents to the ER for hallucinations. During my interview with the patient today, she is awake. She is delusional and paranoid. She says she is hearing voices and people pulling her in all directions. The patient says "people here are talking about me, the people in the tv are talking about me and telling a bunch of lies." She denies being on any psych meds and states "I don't trust yall so I don't take the meds yall give." The patient denies SI/HI, she says "not at all." She says "in the past a lot." She verbalize "seeing people fighting and doing a lot of stuff." The patient denies any illicit drug use, alcohol or nicotine. PAST PSYCHIATRIC HISTORY Diagnoses: schizophrenia, bipolar, anxiety Suicide attempts or Self-harm behavior: 16 Prior psychiatric hospitalizations: a lot Substance Abuse history: Denies Previous psychiatric medications tried: Denies Outpatient treatment: Denies PAST MEDICAL HISTORY: None reported Family Psychiatric History: None reported or documented SOCIAL HISTORY Marital Status: Living Arrangements: Homeless Employment Status: Disabled Access to guns/weapons: None reported Education: 8th grade History of Abuse: None reported Legal History: denies REVIEW OF SYSTEMS Constitutional: Negative for weight loss ENT: Negative for stridor Respiratory: Negative for cough or hemoptysis All other systems reviewed and are negative MENTAL STATUS EXAMINATION General Appearance and Behavior: Age appropriate, good hygiene, wearing appropriate clothes, fair eye contact Cooperation: Participating/engaged, but Guarded Psychomotor Behavior: Psychomotor normal Mood: "stressed" Affect and affective range: congruent with stated mood Thought Process: illogical Thought Content: hallucinations, delusions Speech: Normal rate, volume and rhythm Suicidal Ideation: Denies at present Homicidal Ideation: Denies Hallucinations: A/V Delusions: Yes, paranoid Impulse Control: Impaired Insight and Judgment: impaired insight and judgment Memory: Normal Attention: impaired Orientation: Alert, oriented Assessment and Plan (1) Bipolar Disorder with Psychotic Features (2) Noncompliance with other medical treatments and regimen Current Visit: Yes Status: Acute Treatment Plan MEDICATIONS: Depakote DR 125mg po BID Risperidone 0.25mg po BID Trazodone 50mg po qhs Risks, benefits and alternatives of medications discussed with the patient, questions answered and consent obtained from patient. PSYCHOTHERAPY: Supportive psychotherapy provided MEDICAL: Per primary team DELIRIUM PRECAUTIONS: Please re-orient patient frequently, keep lights on during the day, and minimize benzodiazepines and opiates as these medications could worsen patient's confusion. LEVI MAKER: DISPOSITION: Recommend acute inpatient psychiatric hospitalization at this time LEGAL STATUS: 1013 FOLLOW-UP: Will follow Thank you for the consult. Please contact with any questions and/or concerns. Medications and Allergies Allergies Allergy/AdvReac Type Severity Reaction Status Date / Time Penicillins Allergy Severe Shortness Verified 02/16/20 01:07 of Breath calcium carbonate Allergy Hives Verified 02/16/20 01:07 [From Pepcid Complete] famotidine Allergy Hives Verified 02/16/20 01:07 [From Pepcid Complete] magnesium Allergy Hives Verified 02/16/20 01:07 [From Pepcid Complete] procaine HCl [From Novocain] Allergy Unknown Verified 02/16/20 01:07 Home Medications Medication Instructions Recorded Confirmed Last Taken Type Aspirin [Aspirin BABY CHEW TAB] 81 mg PO QDAY tab.chew 06/12/15 08/31/20 1 Day Ago Rx ~12/16/17 Pantoprazole [Protonix TAB] 40 mg PO QDAY #30 tablet 06/12/15 08/31/20 1 Day Ago Rx ~12/16/17 Cetirizine HCl [Zyrtec 10mg tab] 10 mg PO DAILY #30 tablet 08/22/19 08/31/20 Unknown Rx Ibuprofen [Motrin 800 MG tab] 800 mg PO Q8HR PRN #24 tablet 08/22/19 08/31/20 Unknown Rx Prednisone [predniSONE 10 mg 10 mg PO .TAPER #21 tab.ds.pk 08/22/19 08/31/20 Unknown Rx (6-Day Pack, 21 Tabs)] Promethazine/Phenyleph/Codeine 5 ml PO Q6H PRN #120 ml 08/22/19 08/31/20 Unknown Rx [Promethazine Vc-Codeine Syrup] ARIPiprazole 5 mg PO QDAY #30 tablet 02/20/20 08/31/20 Unknown Rx Nicotine [Habitrol] 7 mg TD QDAY #30 patch 02/20/20 08/31/20 Unknown Rx Valproic Acid [Depakene] 500 mg PO TID #90 capsule 02/20/20 08/31/20 Unknown Rx Venlafaxine [Effexor 25mg tab] 25 mg PO QDAY #30 tablet 02/20/20 08/31/20 Unknown Rx traZODone [Desyrel] 50 mg PO QHS #30 tablet 02/20/20 08/31/20 Unknown Rx Fluconazole (Nf) [Diflucan TAB] 150 mg PO ONCE 1 Days #1 tablet 07/03/2008/14 Unknown Rx Sulfamethoxazole/Trimethoprim 1 each PO BID #14 tablet 07/03/20 08/31/20 Unknown Rx [Bactrim DS TAB] Mental Status Exam - Vital signs Last Vital Signs Temp 98.3 F 09/01/20 07:55 Pulse 74 09/01/20 07:55 Resp 18 09/01/20 07:55 BP 168/90 09/01/20 07:55 Pulse Ox 100 09/01/20 07:55 Results Result Diagrams: 08/31/20 09:10 08/31/20 09:10 Abnormal lab results 08/31/20 08/31/20 08/31/20 Range/Units 09:10 09:10 09:10 MCHC (30-34) % Lymph % (Auto) (13.4-35.0) % Sodium 149 H (137-145) mmol/L Chloride 110.9 H (98-107) mmol/L Glucose 102 H (65-100) mg/dL Calcium 10.4 H (8.4-10.2) mg/dL Salicylates < 0.3 L (2.8-20.0) mg/dL Acetaminophen 5.0 L (10.0-30.0) ug/mL 08/31/20 Range/Units 09:10 MCHC 35 H (30-34) % Lymph % (Auto) 37.8 H (13.4-35.0) % Sodium (137-145) mmol/L Chloride (98-107) mmol/L Glucose (65-100) mg/dL Calcium (8.4-10.2) mg/dL Salicylates (2.8-20.0) mg/dL Acetaminophen (10.0-30.0) ug/mL All other labs normal.
[2020-09-01] MEDS: risperiDONE 0.25 MG TAB PO SCH ×3 (10:16→21:38)
[2020-09-01] MEDS: DIVALPROEX DR 125 MG TAB PO SCH ×3 (10:16→21:38)
[2020-09-01 19:56] VITALS: BP 124/70
[2020-09-01] MEDS ORDERED: traZODone 50 MG TAB PO SCH (22:00)
== END 2020-09-01 22:10 ==
LOC: ED 07:59
DX: F23 Brief psychotic disorder (principal); F31.9 Bipolar disorder, unspecified; R07.89 Other chest pain; E86.0 Dehydration; Z04.6 Encounter for general psychiatric examination, requested by authority; I25.2 Old myocardial infarction; K21.9 Gastro-esophageal reflux disease without esophagitis; G43.909 Migraine, unspecified, not intractable, without status migrainosus; J44.9 Chronic obstructive pulmonary disease, unspecified; Z90.89 Acquired absence of other organs; Z90.710 Acquired absence of both cervix and uterus; Z98.890 Other specified postprocedural states; Z79.1 Long term (current) use of non-steroidal anti-inflammatories (NSAID); Z79.899 Other long term (current) drug therapy; Z88.8 Allergy status to other drugs, medicaments and biological substances
CPT/HCPCS: 36415; 80048; 80307; 81001; 85025; 99285; U0003; 80320; G0480